=== PATIENT | female | born 1965 | race Caucasian/White ===

== ENCOUNTER 2020-02-06 14:10 | Emergency (ER) | payer OTHER, SELFPAY ==
[2020-02-06 14:11] VITALS: BP 134/86; PULSE 82; RESP 16; TEMP 36; O2SAT 97; BMI 29.2
--- NOTE | 2020-02-06 14:30 | CT_ITS ---
STUDY: CTA CHEST REASON FOR EXAM: Female, 54 years old. History of venous thrombi embolic disease RADIATION DOSAGE (If Supplied By Facility): CTDIvol = ( 12.13 ) mGy, DLP = ( 390.62 ) mGycm TECHNIQUE: The examination was performed with the intravenous administration of 100ML ISOVUE 370. Post-processing of the angiographic images was performed, with multiplanar reformation and 3D reconstruction. Individualized dose optimization techniques were used for this CT. COMPARISON: 01 March 2014, 20 August 2013 FINDINGS: The study is mildly/moderately degraded due to patient''s large body habitus. Subsegmental arteries are not evaluable. Some segmental branches are evaluable. Central proximal arteries are evaluable in diagnostic information is present. There is no acute or chronic pulmonary embolism. Aorta is of normal caliber. Lungs are clear. There is no pneumothorax, pulmonary edema or pleural effusions. Mediastinal contents are normal. Osseous structures are intact. There are multilevel degenerative disc and endplate changes with mild thecal sac stenosis in the mid and lower thoracic spine. Abdominal structures are unremarkable. CT/CTA Chest W/WO Contrast IMPRESSION: 1. No pulmonary embolism 2. No acute vascular thoracic pathology. 3. Thoracic spinal spondylosis. Electronically Signed: Jill Harris, at 16:20 EDT Tel , Service support ,
--- NOTE | 2020-02-06 14:31 | EKG12_ITS ---
Test Reason : Blood Pressure : / mmHG Vent. Rate : 080 BPM Atrial Rate : 080 BPM P-R Int : 182 ms QRS Dur : 090 ms QT Int : 376 ms P-R-T Axes : 060 001 046 degrees QTc Int : 433 ms Normal sinus rhythm Normal ECG Confirmed by ELIGIO HARPER MD ([id number]), acquisitions editor [place] ROYAL ([id number]) on 02/08/2020 1:21:27 PM Referred By: YASH Confirmed By:ELIGIO HARPER MD
[2020-02-06 14:32] VITALS: O2SAT 99
[2020-02-06] MEDS: Aspirin 81 MG TAB.CHEW 324 MG PO (14:39)
[2020-02-06] MEDS: 0.9% Normal Saline 1,000 ML 999 ML IV (14:39)
--- NOTE | 2020-02-06 14:44 | ED.VIS.CHEST ---
History of Present Illness <NickyherbLakishasukh - Last Filed: 02/06/20 15:05> Informant: Patient, Spouse/S.O. Onset: Today Activity at onset: Rest Timing: Continuous Quality: Dull Location: Substernal Current Severity: Mild Maximum Severity: Severe Worsened By: Nothing Relieved By: Nothing Associated Symptoms: Lightheadedness. Negative for: Nausea, Vomiting, Diaphoresis, Dyspnea, Cough, Fever, Acid Reflux, Palpitations Narrative: 54-year-old female presents to the emergency department with chest pain. It started at rest while she was sitting on her porch reading a book at 930 this morning. It is a dull pain substernal it is been constant. It does not radiate. Nothing makes it better or worse. She was somewhat lightheaded with the pain but has not had shortness of breath diaphoresis nausea or vomiting. She is not having back pain or neck pain. Denies history of similar symptoms. Denies any leg pain or swelling. Denies recent travel or surgery or use of oral control. She does have a history of a pulmonary embolism remotely and is on Plavix and aspirin only currently. Prior Similar Symptoms: Yes, With Prior PE Recent Illness/Hospitalization: No CVD Risk Factors: Negative for: Hypertension, Diabetes, Hypercholesterolemia, Family History 1' </=55, Smoking PE Risk Factors: Prior DVT or PE. Negative for: Recent Travel/Surgery, Recenet Immobilization, Cancer TAD Risk Factors: Negative for: Marfan's Syndrome, Hypertension, Family History <Humphrey Haskins - Last Filed: 02/06/20 16:50> Chief Complaint: Chest Pain Past Medical History <NickyherbLakishasukh - Last Filed: 02/06/20 15:05> Prior records reviewed: Yes Past Medical History: - Surgical History: - - stent to artery in left leg. surgery as a teenager to repair a laceration to the vulva. Recent uterine bx ( negative). History of dilation and curettage. Smoking Status: Former smoker <Humphrey Haskins - Last Filed: 02/06/20 16:50> - Allergies and Home Meds Allergies/Adverse Reactions: Allergies lansoprazole [From Prevacid] Allergy (Unknown, Verified 02/06/20 14:11) Unknown Penicillins Allergy (Unknown, Verified 02/06/20 14:11) Rash Primary Care Physician: Denny Woodard MD [Primary Care Provider] - Physical Exam Vital Signs/Narrative: Vital Signs Temp Pulse Resp BP Pulse Ox 02/06/20 14:32 99 02/06/20 14:11 96.8 F L 82 16 134/86 H 97 <Juan M Patterson - Last Filed: 02/06/20 15:05> Vital Signs/Narrative: Vital Signs Temp Pulse Resp BP Pulse Ox 02/06/20 14:32 99 02/06/20 14:11 96.8 F L 82 16 134/86 H 97 <Humphrey Haskins - Last Filed: 02/06/20 16:50> Diagnostic/Tx/Re-eval - Medical Decision Making Patient seen with Humphrey agree with history and physical as above, patient presents with chest pain she has a prior history for DVT and PE she is not been ill in any way no exposures to coronavirus no fever cough no hx TX CAD or risk factors for TX or CAD, she was on anticoagulation for some time now she is only on Plavix on exam she is resting company in the bed her vital signs are unremarkable head neck chest unremarkable lungs clear heart tones normal abdomen soft upper and lower extremities unremarkable she denies any leg pain or edema at this time given her history and all the above screening labs CTA see the chart for full details <Juan M Patterson - Last Filed: 02/06/20 15:05> CTA PE Study: No Evidence of PE, No Evidence of Dissection - Rhythm Strip Rhythm Strip: Sinus Rhythm Rate: 80 Ectopy: None - EKG Initial EKG Interpretation: Sinus Rhythm, No Acute Injury Pattern Prior: No Prior Treatment: Aspirin Repeat Eval: Pain Free - Medical Decision Making EKG showed sinus rhythm. No signs of ischemia. Patient treated with aspirin. CBC BMP troponin were obtained, all of these are unremarkable. With the patient's history of pulmonary embolism and chest pain we obtained a CTA of the chest. This was unremarkable. There is no pulmonary embolism. Repeat exam the patient is chest pain-free with stable vital signs. Heart score calculated at 1. She declines repeat troponin testing. We will discharge her home and advised her to follow-up with her primary care as an outpatient. She was advised to return for worsening symptoms which we went over. <Humphrey Haskins - Last Filed: 02/06/20 16:50> ED Disposition <Juan M Patterson - Last Filed: 02/06/20 15:05> <Humphrey Haskins - Last Filed: 02/06/20 16:50> - Plan for ED Patient: Disposition: Home or Assisted Living Diagnosis: Chest pain, History of DVT of lower extremity, History of pulmonary embolism Instructions: ED Chest Pain NonCardiac Referrals: Denny Woodard MD [Primary Care Provider] -
[2020-02-06 14:49] LABS: Absolute Lymphocyte Count 2.05 X10^3/uL (0.83-4.51); Absolute Neutrophil Count 3.1 X10^3/uL (2.0-7.7); Basophil# 0.06 X10^3/uL; Eosinophil# 0.42 X10^3/uL; Eosinophils% 6.7 % (0-5); Hematocrit 38.7 % (37-47); Hemoglobin 12.8 g/dL (12.0-15.0); Lymphocyte # 2.05 X10^3/ul (4.0); Lymphocyte % 32.6 % (19-41); Mean Corp Hgb Conc 33.1 g/dL (32-36); Mean Corpuscular Volume 87.8 fL (81-99); Mean Platelet Vol. 8.9 fl (6.2-12.0); Monocyte# 0.61 X10^3/uL; Monocyte% 9.7 % (0-10); NRBC Flagged by Analyzer 0 % (0-5); Neutrophil # 3.12 X10^3/uL (2.7-7.7); Neutrophil % 49.5 % (47-70); Platelet Count 328 K/mm3 (150-450); RBC Distribution Width SD 41.1 fl (35.1-43.9); Red Blood Count 4.41 M/mm3 (4.2-5.4); White Blood Count 6.3 K/mm3 (4.4-11.0)
[2020-02-06 15:03] LABS: Anion Gap 7 (5-15); BUN 9 mg/dL (7-18); Calcium,Total 8.7 mg/dL (8.5-10.1); Chloride 100 mmol/L (98-107); Creatinine, Serum 0.75 mg/dL (0.55-1.02); EST Glomerular Filtration Rate 85 mL/min (>60); Est Glom Filt Rate - Afr Amer 102 mL/min (>60); Estimated Creatinine Clearance 72.33 ml/min; Glucose 114 mg/dL (74-106); Potassium 3.4 mmol/L (3.5-5.1); Sodium Level 136 mmol/L (136-145)
[2020-02-06 15:26] VITALS: PULSE 77; RESP 18; O2SAT 98
[2020-02-06 16:21] VITALS: BP 140/75; PULSE 70; RESP 18; O2SAT 99
[2020-02-06 17:04] VITALS: BP 135/78; PULSE 72; RESP 18; O2SAT 99
== END 2020-02-06 17:05 | disposition home or self-care (01) ==
PROVIDERS: Emergency Provider Physician Assistant Medical; PCP Family Medicine
DX: R07.89 Other chest pain (principal); R42 Dizziness and giddiness; Z86.711 Personal history of pulmonary embolism; Z86.718 Personal history of other venous thrombosis and embolism; Z79.02 Long term (current) use of antithrombotics/antiplatelets; Z79.82 Long term (current) use of aspirin; Z79.899 Other long term (current) drug therapy; Z87.891 Personal history of nicotine dependence
CPT/HCPCS: 71275; 80048; 84484; 85025; 93005; 96360; 96361; 99285; J7030; Q9967; A4216

== ENCOUNTER 2020-08-29 02:47 | Emergency (ER) | payer OTHER, SELFPAY ==
[2020-08-29 02:47] VITALS: BP 132/71; PULSE 77; RESP 18; TEMP 36.4; O2SAT 96
--- NOTE | 2020-08-29 03:10 | ED.DCSUM_ITS ---
- ER Visit Summary Date of Service: 08/29/20 Chief Complaint: Hematuria History of Present Illness: The patient is a 55 F who presents with hematuria that began today. Patient also admits to some dysuria. Patient states she was having some nausea and vomiting yesterday. Patient also admits to some low back pain. Patient describes her pain as burning and pressure. Patient states the pain is over the suprapubic area. Patient states her pain is worse with urination. Patient admits to subjective fevers and chills. Patient also states she had a episode of chest pain yesterday. Patient denies any shortness of breath. Patient denies any cough. Physical Examination: Vital signs are stable. Patient is afebrile. Patient is in no acute distress. Oral mucosa is pink and moist. Neck is supple. Trachea is midline. There is no JVD noted. Heart was regular rate and rhythm. Lungs are clear and equal bilaterally. Abdomen is soft. Bowel sounds are normal. There is mild lower abdominal and left upper quadrant tenderness. There is no rebound or guarding noted. Skin is warm dry. Cranial nerves II through XII are intact. There are no focal motor or sensory deficits noted. Extremities are intact. There is no calf tenderness or edema. Test Results: CBC was normal. Comprehensive metabolic profile showed a mild hyponatremia of 128 and a mild hypokalemia of 2.9. Alk phos was slightly elevated at 164, ALT was slightly elevated at 179 and AST was slightly elevated at 229. Urinalysis showed leukocyte esterase of 500 and occult blood of 250. There were 50-100 white blood cells and greater than 100 red blood cells. Urine culture was ordered. Emergency Department Course and Treatment: Patient was given IV fluids and Zofran here. Patient was also given a dose of potassium and a dose of Bactrim. Patient was given a prescription for Bactrim. Patient was instructed to drink plenty of fluids. Patient was instructed to follow-up with her primary care physician in 3 to 5 days. Patient understood and was agreeable with the plan. All questions were answered. Disposition: Discharge home Impression: 1. Hemorrhagic cystitis This note was generated with [employer] software. It may contain incorrect words, spelling, and punctuation that were not noted in review of the chart prior to signing ED Disposition - Plan for ED Patient: Disposition: Home or Assisted Living Diagnosis: Hemorrhagic cystitis Instructions: ED Bladder Infection, Female (Adult) Prescriptions: Smz/Tmp Ds [Bactrim Ds] 1 tab PO BID #6 tab Prescription Printed Referrals: Denny Woodard MD [Primary Care Provider] - 3-5 Days
[2020-08-29] MEDS: Ondansetron 4 MG/2 ML Vial IV (03:14)
[2020-08-29 03:15] LABS: Absolute Lymphocyte Count 1.64 X10^3/uL (0.83-4.51); Absolute Neutrophil Count 5.9 X10^3/uL (2.0-7.7); Basophil# 0.06 X10^3/uL; Basophil% 0.7 % (0-1); Eosinophil# 0.39 X10^3/uL; Eosinophils% 4.4 % (0-5); Hematocrit 39.5 % (37-47); Hemoglobin 13.1 g/dL (12.0-15.0); Lymphocyte # 1.64 X10^3/ul (4.0); Lymphocyte % 18.6 % (19-41); Mean Corp Hgb Conc 33.2 g/dL (32-36); Mean Corpuscular Hgb 29.2 pg (27.0-32.0); Mean Corpuscular Volume 88.2 fL (81-99); Mean Platelet Vol. 8.4 fl (6.2-12.0); Monocyte# 0.83 X10^3/uL; Monocyte% 9.4 % (0-10); NRBC Flagged by Analyzer 0 % (0-5); Neutrophil # 5.88 X10^3/uL (2.7-7.7); Neutrophil % 66.4 % (47-70); Platelet Count 301 K/mm3 (150-450); RBC Distribution Width CV 12.9 % (11.6-14.6); RBC Distribution Width SD 41.3 fl (35.1-43.9); Red Blood Count 4.48 M/mm3 (4.2-5.4); White Blood Count 8.8 K/mm3 (4.4-11.0)
[2020-08-29 03:21] LABS: Bacteria 0 SEEN /hpf (None Seen); Mucous, Urine 0 SEEN /hpf (<or=2+); Squamous Epithelial Cells - UA 0 SEEN /hpf (5-10)
[2020-08-29 03:24] LABS: Color, Urine Red (Yellow)
[2020-08-29 03:25] LABS: Glucose, Dipstick Normal (Normal); Ketone-Dipstick 5 mg/dl (Negative); Leukocyte Esterase-Dipstick 500 /ul (Negative); Nitrite-Dipstick Negative (Negative); Occult Blood-Urine 250 /ul (Negative); Protein-Dipstick 100 mg/dl (Negative); Urine Bilirubin Dipstick Negative (Negative); Urine Clarity Cloudy (Clear); Urine Urobilinogen Normal (Normal)
[2020-08-29 03:27] LABS: ALB/GLOB Ratio 1.3 RATIO (0.9-2.4); AST(SGOT) 229 U/L (15-37); Alanine Aminotransfer ALT/SGPT 179 U/L (13-56); Albumin, Serum 3.9 g/dL (3.2-5.0); Alkaline Phosphatase 164 U/L (45-117); Anion Gap 10 (5-15); BUN 5 mg/dL (7-18); BUN/Creat Ratio 6.7 RATIO (10-20); Calcium,Total 7.9 mg/dL (8.5-10.1); Chloride 91 mmol/L (98-107); Creatinine, Serum 0.74 mg/dL (0.55-1.02); EST Glomerular Filtration Rate 86 mL/min (>60); Est Glom Filt Rate - Afr Amer 104 mL/min (>60); Estimated Creatinine Clearance 72.43 ml/min; Globulin 3.1 g/dL (2.2-4.2); Glucose 100 mg/dL (74-106); Potassium 2.9 mmol/L (3.5-5.1); Sodium Level 128 mmol/L (136-145)
[2020-08-29 03:29] LABS: Red Blood Cells-Urine > 100 SEEN /hpf (0-5); White Blood Cells 50-100 SEEN /hpf (0-5)
[2020-08-29] MEDS: Smz/Tmp Ds Tablet 1 TABLET PO (03:45)
[2020-08-29] MEDS: 0.9% Normal Saline 1,000 ML 1000 ML IV (03:50)
[2020-08-29 04:46] VITALS: BP 116/72; PULSE 72; RESP 15; O2SAT 98
[2020-08-29 04:47] VITALS: BP 116/72; PULSE 73; RESP 15; O2SAT 94
== END 2020-08-29 05:05 | disposition home or self-care (01) ==
PROVIDERS: Emergency Provider Emergency Medicine; PCP Family Medicine
DX: N30.91 Cystitis, unspecified with hematuria (principal); E87.1 Hypo-osmolality and hyponatremia; E87.6 Hypokalemia; Z86.718 Personal history of other venous thrombosis and embolism
CPT/HCPCS: 80053; 81001; 85025; 87086; 87088; 96361; 96374; 99283; J7030; A4216; J2405

== ENCOUNTER 2020-09-27 09:53 | Day surgery (SDC) | payer OTHER, SELFPAY ==
--- NOTE | 2020-09-24 11:12 | PCM.HP.BLA ---
History and Physical Date of Admission: 09/27/20 HISTORY AND PHYSICAL ? Mikal Collins 1965 ? ? REFERRING PHYSICIAN: Denny Woodard MD ? CHIEF COMPLAINT: Consult (Consult Jason) ? HPI: The patient is a 55 year old female presents with RUQ abdominal pain. She describes this a Throbbing pain that also radiates around to the back with occasional sharp pains. She also notes associated symptoms of nausea and occasional emesis. She also notes occasional loose stools. She has noted this since May, but at that time the attacks were less frequent/severe/prolonged. She now notes worsening symptoms of the above. She denies fevers. Her last attack was in August and she had to go to [facility] ED for treatment. She does note that her mother had gallbladder problems. ? US RUQ abdomen 09/08/20 IMPRESSION: Gallstones, including large stone of 2.4 cm. ?Gallbladder sludge. ? Dilated common duct. ?Cholecystitis is a diagnostic possibility. ?HIDA scan may be helpful for further evaluation, if clinically indicated. Otherwise normal right upper quadrant ultrasound. Suboptimal visualization of the pancreas and liver. ?If further evaluation is necessary, computed tomography may be helpful. The spleen appears normal. ? ? PAST MEDICAL HISTORY ? Abnormal EKG 07/24/2017 ? possible inferior NC age undetermined ? Compression of vein 12/17/2016 ? DVT (deep venous thrombosis) ([facility]) ? Dr. Howie osborn ? DVT (deep venous thrombosis) ([facility]) 09/02/2013 ? Dr. Howie osborn ? Left leg DVT ([facility]) ? 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 ? Personal history of DVT (deep vein thrombosis) 12/12/2017 ? Psoriatic arthritis ([facility]) ? ? [facility] ? Pulmonary embolism ([facility]) 08/2013 ? x 5 ? Uterine fibroid ? ? Venous aneurysm 09/02/2013 ? PAST SURGICAL HISTORY ? EGD W/O BRSH SPECIMEN W/BX ? ? ? EXTRACTION, ERUPTED TOOTH OR EXPOSED ROOT (ELEVATION AND/OR FORCEPS REMOVAL) ? ? wisdom teeth ? FILTER PLACEMENT ([facility]) ? 09-13- ? HYSTERECTOMY HX ? 09/2014 ? IVC FILTER PLACEMENT/REMOVAL ? - ? removal ? PAST SURGICAL HISTORY OF ? 1981 ? 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 PAST SURGICAL HISTORY OF ? 03/2009 ? esphageal dilatation--foreign body ? PAST SURGICAL HISTORY OF ? -2013 ? vena caval filter ? RTRVL INTRVAS VC FILTR W/WO ACS VSL SELXN RS&I ? 03-24-15 ? FILTER REMOVAL ? ? Current Outpatient Medications ? estradiol (ESTRACE) 0.01 % (0.1 mg/gram) vaginal cream Use 1 g vaginally once daily. ? sertraline (ZOLOFT) 50 mg tablet Take 1 tablet by mouth once daily. ? clopidogrel (PLAVIX) 75 mg tablet Take 1 tablet by mouth once daily. ? hydroxychloroquine (PLAQUENIL) 200 mg tablet Take by mouth once daily. ? gabapentin (NEURONTIN) 300 mg capsule Take 1 capsule by mouth three times daily. (Patient taking differently: Take 300 mg by mouth four times daily as needed.) ? Comp Stocking,Knee,Long,Medium misc 20-30 mmhg, Diagnosis venous inssuficiency ? omeprazole 20 mg capsule Take 1 capsule by mouth once daily. ? multivitamins(MULTIPLE VITAMINS TAB) Take one(1) tablet daily. ? ? ALLERGIES: Penicillins and Prevacid [Lansoprazole] ? PERSONAL HISTORY: Social History ?Tobacco Use ? Smoking status: Former Smoker ? ? Quit date: 08/06/2004 ? ? Years since quittin.1 ? Smokeless tobacco: Never Used Substance Use Topics ? Alcohol use: Yes ? ? Alcohol/week: 7.5 standard drinks ? ? Types: 3 Cans of Beer (12oz) per week ? Drug use: No ? FAMILY HISTORY ? Cancer Father ? ? tumor on kidney (unsure if malignant); of other causes ? Coronary Artery Disease Father ? ? mid-60's ? other (retinitis pigmatosis) Father ? ? (and uncle) blind ? DVT Mother ? ? has filter ? Osteoporosis Mother ? ? other (born blind) Mother ? ? Diabetes Other ? ? none ? Colon Cancer Other ? ? none ? ? REVIEW OF SYSTEMS: General - denies fevers, denies anorexia, denies weight loss Cardiovascular - denies chest pain, denies history of NC Pulmonary - denies shortness of breath, denies coughing up blood Gastrointestinal - see HPI, denies hematemesis, denies blood in stools Neurological - denies seizures, denies chronic numbness/weakness of extremities, denies chronic headaches Genitourinary - denies burning with urination, has had blood in urine treated for UTI - hemorrhagic cystitis - I have reviewed her [facility] ED note from 08/29/2020, has vulvar lichen sclerosis using hormonal cream Hematological - on plavix and aspirin due to May-Thurner syndrome - history of multiple DVT/PE, denies spontaneous/prolonged bleeding Skin - denies nonhealing skin wounds Musculoskeletal - has occasional back pain, notes bilateral feet pain Endocrine - denies diabetes, no thyroid problems Psychological ? denies hallucinations ? PHYSICAL EXAMINATION: General: The patient is 55 year old female, well nourished, well hydrated in no acute distress. The patient is oriented to time, place, and person. VITALS: Pulse 99, temperature 36.4 ?C (97.6 ?F), weight 78.3 kg (172 lb 9.6 oz), SpO2 98 %. Body mass index is 29.63 kg/m?. ? Head ? Normocephalic. EOM intact with sclera clear and no icterus noted. Mouth with mucus membranes moist. Neck - supple with no jugular venous distention noted. Trachea is midline. Lungs ? clear to auscultation. Normal breath sounds. No rales/rhonchi/wheezing noted. No labored breathing noted, such as retractions. No cough heard. Heart ? normal S1 and S2 auscultated. No rubs/clicks/murmurs noted. Regular rate. Abdomen ? soft and benign. Normal bowel sounds. No abdominal bruits noted. Extremities ? no calf tenderness noted. No pitting edema noted. Skin ? normal skin integrity. Neurological ? gait normal, no focal deficits noted. Psych ? calm and appropriate LABORATORY VALUES: As Noted RADIOLOGIC STUDIES: As Noted ? ? IMPRESSION: RUQ abdominal pain, cholelithiasis ? PLAN: I have discussed the above with the patient. I have offered laparoscopic cholecystectomy, possible cholangiograms I have explained the procedure to the patient. I have counseled the patient as to the risks of the procedure, including but not limited to: infection, bleeding, injury to any blood vessels/nerves, scar tissue, injury to any intrabdominal organs, injury to bowel/bladder, injury to the common bile duct/biliary tree, bile leakage, intraabdominal abscess/bleeding, hernias at incisional sites, wound infections, complications of anesthesia, etc. ? the patient understands. ? The patient was offered a surgery/procedure . The provider and patient have discussed in detail the risk of exposure to and/or potential harm posed by the COVID-19 virus with having a surgery/procedure at this time versus the risk of? delaying the surgery/procedure. It is not possible to know either the risk of delaying the surgery or procedure or chance of getting an infection with perfect accuracy, but a joint decision was made between the patient and the provider ?to proceed at this time with the scheduled surgery/procedure. ? The patient wishes to proceed. She wishes to have surgery at [facility]. ? I have answered all questions to the patient?s satisfaction and the patient has no further questions. ? Diagnoses: (R10.11) RUQ abdominal pain (primary encounter diagnosis) (K80.20) Calculus of gallbladder without cholecystitis without obstruction Return to Clinic: The patient is instructed to follow-up with me after the procedure as per needed. ? Thea Hernandez MD
[2020-09-27] VITALS (12 sets, daily range): BP systolic 103–131; BP diastolic 61–81; PULSE 72–96; RESP 16; TEMP 36.4–36.9; O2SAT 93–100; BMI 29.1
[2020-09-27] MEDS: Lactated Ringers 1,000 ML 75 ML IV ×2 (10:20→15:03)
--- NOTE | 2020-09-27 10:43 | EKG12_ITS ---
Test Reason : PRE-OP Blood Pressure : / mmHG Vent. Rate : 072 BPM Atrial Rate : 072 BPM P-R Int : 170 ms QRS Dur : 080 ms QT Int : 382 ms P-R-T Axes : 045 -01 035 degrees QTc Int : 418 ms Normal sinus rhythm Normal ECG Confirmed by WALKER NICHOLE, DOREEN ([id number]), film or videotape editor [place] ROYAL ([id number]) on 10/03/2020 1:00:10 PM Referred By: Thea Hernandez Confirmed By:SUZANNE CARDOSO MD
--- NOTE | 2020-09-27 11:26 | PCM.DC.GB ---
Discharge Diet: No Restrictions - avoid carbonated beverages for a couple of days as they may cause bloating and abdominal discomfort after this type of surgery, DO -drink plenty of fluids Discharge Activity: Return to Normal Activity, May not drive while taking narcotic pain medications. Lifting Restrictions: no lifting greater than 20 pounds for two weeks Call your doctor if your incision/area has: Continuous Slow Oozing, Foul Smelling Discharge Call your doctor if you observe: Fever of 101 or Higher Additional Instructions: Recommended pain control regimen - May take 600 mg ibuprofen (Motrin) and then in 3-4 hours, may take 650 mg acetaminophen (Tylenol), then in 3-4 hours may take 600 mg ibuprofen, then in 3-4 hours may take 650 mg acetaminophen and so on for 2-3 days May take narcotic pain medication for pain that is not controlled by above and at night for comfort through the night Leave dressings in place May get dressings wet in shower - do not scrub in the area and pat dry Do not soak - no tub baths/swimming If dressing appears to be soiled/open at one end/no longer sealed - may remove dressing but leave site uncovered (do not replace with any type of dressing) - leave steristrips in place - may get wet but do not scrub in the area and pat dry You may have bleeding at the dressing sites. If small amounts and not seeping through the dressing, do not worry - leave dressing in place. If starting to seep through the dressing, you may remove the dressing and take a clean wash clothe and apply direct pressure to the area for at least an hour and then apply a new clean bandaid at the site. If it still has not stopped bleeding, please call the office during the day or the [facility] ballast cleaning machine operator at after hours and ask for Dr. Hernandez Please call for a follow up appointment - - to be seen in 1-2 weeks at your time and convenience, thank you Allergies/Adverse Reactions: Allergies lansoprazole [From Prevacid] Allergy (Unknown, Verified 09/27/20 10:11) Unknown Penicillins Allergy (Unknown, Verified 09/27/20 10:11) Rash Medications to take at Discharge Multivitamins,Therapeutic [Multivitamin] 1 tablet PO DAILY 08/14/13 Omeprazole [Prilosec] 20 mg PO DAILY 08/14/13 Gabapentin [Neurontin] 300 mg PO TID 09/10/14 Aspirin [Aspirin, Baby] 81 mg PO DAILY 10/07/16 Clopidogrel Bisulfate [Plavix] 75 mg PO DAILY 10/07/16 Sertraline HCl [Zoloft] 50 mg PO DAILY 02/06/20 Hydroxychloroquine [Plaquenil] 300 mg PO DAILYCM 09/22/20 Hydrocodone Bitart/Apap 5-325 [[place] 5MG-325MG] 1 tablet PO Q8H PRN PRN 5 Days #15 tablet 09/27/20 The following prescriptions were given: Hydrocodone Bitart/Apap 5-325 [[place] 5MG-325MG] 1 tablet PO Q8H PRN PRN 5 Days #15 tablet PRN Reason: Pain Score 4-10 Transmission Status: Received by [facility]/pharmacy #[id number] Primary Care Physician: Denny Woodard MD [Primary Care Provider] - Test Results: Test results from this visit will be discussed in further detail at your follow-up appointment, if applicable. Please Follow Up With: Thea Hernandez MD - call When: to be seen in 1-2 weeks, please call for date and time, thank you
--- NOTE | 2020-09-27 11:29 | OP.PCM_ITS ---
Report of Operation Date of Procedure: 09/27/20 Pre-Operative Diagnosis: cholelithiasis Post-Operative Diagnosis: cholelithiasis, chronic cholecystitis Surgery/Procedure Performed:: laparoscopic cholecystectomy with cholangiograms Description of Surgical Findings:: chronic cholecystitis with omental adhesions to entire free surface of the gallbladder and in the area of the triangle of Calot, cholelithiasis account manager sales representative: Allyssa Bates Type of Anesthesia:: General Anesthesiologist: Ignacio Wade Specimen's removed: gallbladder and contents Estimated Blood Loss (mL): < 5 ml Fluids Replaced: 1200 ml RL Description of Procedure: After informed consent was given, the patient was brought to the Operating Room. Appropriate time out protocol was followed. The patient was placed in the supine position. The patient was then placed under general endotracheal anest hesia by the anesthesia provider. The abdomen was then prepped with a sterile surgical skin preparation and sterile surgical drapes were placed. The infraumbilical skin fold was grasped with penetrating clamps and the skin and subcutaneous tissues were infiltrated with 0.25% marcaine with epinephrine. A skin incision was then made with a 15 blade scalpel. The anterior abdominal wall was elevated and a Veress needle was carefully inserted into the intraabdominal cavity. It was checked to be in the proper position with a normal saline drop test. A CO2 pneumoperitoneum was then created. Once this was achieved, then the Veress needle was removed and an 11mm trocar was placed in its stead. A 10mm laparoscope was then inserted into the trocar and careful attention was directed to the intraabdominal contents. There was no evidence of injury to any intraabdominal organs from insertion of the Veress needle or the trocar. Under direct visualization, a 5mm subxiphoid trocar and two lateral 5mm right subcostal trocars were placed. The skin and subcutaneous tissues at these sites were infiltrated with 0.25% marcaine with epinephrine prior to placement of these trocars. Attention was then directed to the right upper quadrant of the abdomen. There were omental adhesions to the free surface of the gallbladder. These were taken down by blunt dissection, this took some time as there was more than average. Hemostasis was achieved by cautery. Once the entire free surface of the gallbladder was cleared, graspers were placed in the lateral trocars to grasp the distal aspect of the gallbladder and direct it cephalad and to grasp the gallbladder at Navarro?s pouch and direct it laterally. Dissection then began on the proximal gallbladder continuing down to the area of the triangle of Calot to bluntly dissect out the cystic duct. The neck of the gallbladder was identified and blunt dissection continued to dissect out a segment of the cystic duct. A clip was then placed on the neck of the gallbladder. A small ductotomy was then made. A Ranfac catheter was brought in through a separate skin incision and placed into the cystic duct. An intraoperative cholangiogram was performed under fluoroscopy. The xray revealed no lesions in the cystic duct and good flow into the duodenum. The Ranfac catheter was then removed and two clips were placed proximal to the ductotomy and the cystic duct was then transected. The cystic artery was visualized and bluntly isolated and then two clips were placed proximally and one clip distally and then it was transected between the proximal and distal clips. The gallbladder was then from the liver bed using electrocautery. Once from the liver bed, it was placed in an Endobag. It was then brought out via the umbilical port. It was then forwarded to pathology for analysis. The liver bed was carefully examined. There was no evidence of bile leakage or bleeding. The cystic duct stump and cystic artery stump had their clips intact and there was no evidence of bile leakage or bleeding. Surgicel was applied to some of the fatty tissues around the cystic artery. The remainder of the abdomen was grossly normal. The CO2 was released and all trocars removed intact. The periumbilical fascia was approximated with a [id number] 0 vicryl suture. All skin incision were closed with 4-0 monocryl in a subdermal fashion. Cavilol and Steristrips were used to reinforce the skin closure. Sterile dressings were applied to all wounds. Sponge, needle and instrument count was verified and correct at time of skin closure. The patient was extubated and brought to the Recovery Room in stable condition. - Complications none noted - Admit VTE Documentation VTE Present on Admission: Yes VTE Mechan Device Prophylaxis: SCD's
--- NOTE | 2020-09-27 11:30 | RAD_ITS ---
STUDY: INTRAOPERATIVE CHOLANGIOGRAM. REASON FOR EXAM: Female, 55 years old. PAIN. IOC. 1 IMAGE FLUOROSCOPY TIME (if supplied): ( 2.5 seconds ) minutes/seconds TECHNIQUE: An intraoperative cholangiogram was performed by the surgeon. Single image was submitted. COMPARISON: None. FINDINGS: The common bile duct is not dilated. No intraluminal filling defect is seen. There is free flow of contrast into the duodenum. RAD/Cholangiogram/ O R,Initial IMPRESSION: Unremarkable intraoperative cholangiogram. Electronically Signed: Javad Hurt MD at 12:56 EST , Service support ,
--- NOTE | 2020-09-27 11:30 | GALL_PTH ---
PATIENT: BHUPENDRA SILVERIO [place] [facility] [place][id number] AGE/SX: 55/F ROOM: RE09/27/[address]: Dr. Thea Hernandez MD : [id number] BED: DIS: 09/27/2020 SPEC #: [id number] RECD: 09/27/20 13:13 STATUS: JESSIKA RE #: [id number] ARIA: 09/27/20 11:[address]: Thea Hernandez DEPT: SURGICAL PATHOLOGY RECD BY: Agustina Otero ENTERED: 09/28/20 07:13 SP TYPE: MARTHA PABON DR: Dr. Denny Woodard MD Tissues: Gallbladder, NOS Procedures: Surgery Specimen Level III HEADER OPERATION: Laparoscopic cholecystectomy with IOC PRE-OP DIAGNOSIS: Cholelithiasis TISSUE SUBMITTED: Gallbladder MICROSCOPIC DIAGNOSIS Gallbladder, cholecystectomy: Cholesterolosis, cholecystitis and cholelithiasis. AM:ludwig 09/29/2020 MICROSCOPIC DESCRIPTION Slides are reviewed. GROSS DESCRIPTION Received is one container labeled with the patient's name and designated gallbladder. The specimen consists of a gallbladder measuring 7.5 x 3 x 3 cm. The external surface is smooth and glistening. Focally, it is granular, hemorrhagic and contains cautery artifact. The lumen of the gallbladder contains yellow-green mucoid bile and multiple chalky, yellow calculi ranging in size from <0.1 to 2.8 cm in greatest dimension. The mucosa is bile-stained and without any mass lesions. The gallbladder wall averages 0.2 cm in thickness and is free of mass lesions. Able Seaman sections of the gallbladder and the cystic duct at margin of resection are submitted in one cassette. / AM:ludwig 09/28/20 TC:3 CPT: 22449
[2020-09-27] MEDS: Bupiv/Epi 0.25% 30 ML Vial (12:46)
[2020-09-27] MEDS: HYDROcodone Bitartrate/Apap 5/325 Tablet PO (15:27)
== END 2020-09-27 16:26 | disposition home or self-care (01) ==
LOC: SDC 09:54 → AC 09:54
PROVIDERS: PCP Family Medicine; Referring Provider Surgery; Visit Provider Surgery
PROC: (CPT 47610; principal; 2020-09-27 11:10)
DX: K80.10 Calculus of gallbladder with chronic cholecystitis without obstruction (principal); Z20.828 Contact with and (suspected) exposure to other viral communicable diseases; L40.50 Arthropathic psoriasis, unspecified; Z86.711 Personal history of pulmonary embolism; K21.9 Gastro-esophageal reflux disease without esophagitis; Z79.899 Other long term (current) drug therapy; Z86.718 Personal history of other venous thrombosis and embolism; Z79.82 Long term (current) use of aspirin; Z79.02 Long term (current) use of antithrombotics/antiplatelets; Z87.891 Personal history of nicotine dependence
CPT/HCPCS: 47563; 74300; 76000; 87426; 88304; 93005; C9803; J7050; J7120; J2405

== ENCOUNTER 2020-11-15 15:13 | Outpatient (RCR) | payer OTHER, SELFPAY ==
[2020-09-27 10:12] VITALS: BMI 29.1
[2020-11-15] MEDS: COVID-19 VACC, MRNA(PFIZER)/PF 30 MCG/0.3 ML SYRINGE IM (16:36)
[2020-12-06] MEDS: COVID-19 VACC, MRNA(PFIZER)/PF 30 MCG/0.3 ML SYRINGE IM (16:34)
== END 2020-11-15 23:59 ==
LOC: IMMUN 15:13
PROVIDERS: PCP Family Medicine; Referring Provider Family Medicine; Visit Provider Family Medicine
DX: Z23 Encounter for immunization (principal)
CPT/HCPCS: 0001A; 0002A; 91300

== ENCOUNTER 2022-02-15 16:26 | Emergency (ER) | payer OTHER, SELFPAY ==
[2022-02-15 16:27] VITALS: BP 162/95; PULSE 82; RESP 22; TEMP 36.6; O2SAT 98; BMI 30.1
--- NOTE | 2022-02-15 16:47 | EKG12_ITS ---
Test Reason : CP Blood Pressure : / mmHG Vent. Rate : 075 BPM Atrial Rate : 075 BPM P-R Int : 184 ms QRS Dur : 072 ms QT Int : 378 ms P-R-T Axes : 053 -14 028 degrees QTc Int : 422 ms Normal sinus rhythm Low voltage QRS Inferior infarct , age undetermined , cannot be excluded Abnormal ECG Confirmed by ARLYN NICHOLE, PARK ([id number]), medical transcription editor [place] ROYAL ([id number]) on 02/16/2022 9:03:14 AM Referred By: YOSELYN Confirmed By:PARK STODDARD MD
--- NOTE | 2022-02-15 16:48 | ED.VIS.CHEST ---
HPI History of Present Illness Chief Complaint: Chest Pain Informant: patient Narrative Narrative: 56-year-old female presenting to the emergency department with chest pain and left arm heaviness. She states that yesterday she experienced about 10 to 15 minutes of a sharp left of sternum chest pain. Today while driving home she noted that the left arm felt heavy. She states that it continues to feel heavy. It is not painful but it does not feel like the right arm. She states that while sitting in the bed here in the emergency department she had a brief episode of sharp left-sided chest pain just inferior to the breast. No nausea or shortness of breath. No vomiting. She takes Plavix due to a stent in the left leg. [facility] Medical History (Updated 02/15/22 @ 16:[address] Dean Patel DO) Fibroids GERD (gastroesophageal reflux disease) History of DVT of lower extremity Psoriatic arthritis Home Medications multivitamin with folic acid 400 mcg tablet (Thera) 1 tab PO DAILY 08/14/13 [History Last Taken 03/23/14 500 mg] omeprazole 20 mg capsule,delayed release 20 mg PO DAILY 08/14/13 [History Last Taken 09/27/20] gabapentin 300 mg capsule 300 mg PO TID 09/10/14 [History Last Taken 09/27/20] aspirin 81 mg chewable tablet 81 mg PO DAILY 10/07/16 [History Last Taken Unknown] clopidogrel 75 mg tablet 75 mg PO DAILY 10/07/16 [History Last Taken Unknown] sertraline 50 mg tablet 50 mg PO DAILY 02/06/20 [History Last Taken Unknown] hydroxychloroquine 200 mg tablet 300 mg PO DAILYCM RA 09/22/20 [History Last Taken Unknown] Allergy/AdvReac Type Severity Reaction Status Date / Time lansoprazole [From Prevacid] Allergy Unknown Unknown Verified 09/27/20 10:11 Penicillins Allergy Unknown Rash Verified 09/27/20 10:11 Surgical History Hx laparoscopic cholecystectomy Social History (Updated 02/15/22 @ 16:[address] Dean Patel DO) current gender identity: female Smoking Status: Never smoker substance use type: does not use ROS ROS ED Constitutional Constitutional ED: Denies chills or weight loss Eyes Eyes: Denies change in vision or diplopia ENT ENT ED: Denies ear pain, rhinorrhea or sore throat Cardiovascular Cardiovascular: Reports chest pain; Denies orthopnea, palpitations or racing heartbeat Respiratory/Chest Respiratory/Chest: Denies cough, dyspnea or orthopnea Gastrointestinal Gastrointestinal: Denies abdominal pain, diarrhea, nausea or vomiting Genitourinary Genitourinary ED: Denies dysuria, hematuria or urinary frequency Musculoskeletal Musculoskeletal: Reports other Details: Left arm heaviness ; Denies arthralgias or myalgias Integumentary Denies abscess or rash Neurologic Neurologic: Denies headache(s) or weakness Psychiatric Psychiatric: Denies anxiety, depression, suicidal ideation or suicidal thoughts Endocrine Endocrinology: Denies polydipsia, polyphagia or polyuria Allergic/Immunologic Allergic/Immunologic ED: Denies mouth swelling, tongue swelling or urticaria EXAM Physical Exam Const Vital Signs: 02/15/22 16:27 02/15/22 16:33 02/15/22 16:36 Temperature 97.9 F Temperature Source Oral Pulse Rate 82 Respiratory Rate 22 H Respiratory Effort Normal Non-Labored Blood Pressure 162/95 H Blood Pressure Mean 117 Pulse Ox 98 Oxygen Delivery Method Room Air Room Air Positive well nourished and well developed General Appearance ED: well developed HEENT Reports normocephalic, head/scalp atraumatic and moist mucous membranes Eyes PERRL and EOMs intact bilaterally Neck no lymphadenopathy, supple and no JVD Resp normal respiratory effort and clear to auscultation bilaterally Cardio regular rate, regular rhythm and no murmurs GI normal to inspection, nondistended, normoactive bowel sounds and non-tender Palpation: soft Back/Spine no CVA tenderness and normal ROM Extremity normal to inspection General Extremety ED: Negative for edema General Extremity: Negative for edema Neuro oriented x3 and CN's II-XII intact bilaterally Sensorium / Orientation: alert Motor Exam: strength 5/5 throughout Psych mental status grossly normal Mood & Affect: Negative for depressed or tearful Skin no rashes or lesions noted and no wounds Heart Score History: Slightly/Non-Suspicious ECG: Normal Age: >45 - <65 years Risk Factors: 1 or 2 Risk Factors Troponin: </= Normal Limit Score: 2 MDM MDM MDM Narrative Medical decision making narrative: Troponin is negative D-dimer is negative. CBC and BMP are normal. Monitor duration of the chest x-ray is no acute process normal mediastinum. The patient has remained in a normal rhythm on the monitor. I think she can be discharged home at this point. Return if worsening or concerns Lab Data Attestation: I reviewed the patient's lab results. Labs: Laboratory Results - last 24 hr 02/15/22 02/15/22 02/15/22 16:30 16:30 16:30 WBC 6.7 RBC 4.63 Hgb 13.7 Hct 40.3 MCV 87.0 MCH 29.6 MCHC 34.0 RDW Std Deviation 41.8 RDW Coeff of Roberta 13.2 Plt Count 367 MPV 8.5 Immature Gran % (Auto) 0.500 Neut % (Auto) 50.8 Lymph % (Auto) 34.7 Candler % (Auto) 9.0 Eos % (Auto) 4.1 Baso % (Auto) 0.9 Absolute Neuts (auto) 3.4 Absolute Lymphs (auto) 2.31 Nucleated RBC % 0 D-Dimer Quant (PE/DVT) < 0.27 L Sodium 133 L Potassium 3.4 L Chloride 98 Carbon Dioxide 30.0 Anion Gap 5 BUN 8 Creatinine 0.71 Estim Creat Clear Calc 74.58 Est GFR (MDRD) Af Amer 108 Est GFR (MDRD) Non-Af 90 BUN/Creatinine Ratio 11.3 Glucose 103 Calcium 8.6 Troponin I High Sens < 3 L EKG Initial EKG: Attestation: I personally reviewed and interpreted this EKG as follows: Comments: Normal sinus rhythm with a ventricular rate of 75 bpm. No concerning features of ACS Discharge Plan Triage Chief Complaint: Chest Pain ED Provider: Dean Patel Dx/Rx/DC Orders Clinical Impression: Chest pain Instructions: ED Chest Pain, Uncertain Cause Prescriptions: No Action omeprazole 20 MG capsule 20 mg PO DAILY Label Comments: GERD multivitamin with folic acid [Thera] 1 TABLET tablet 1 tab PO DAILY Label Comments: SUPPLEMENT gabapentin 300 MG capsule 300 mg PO TID Label Comments: PAIN, NEUROPATHY clopidogrel 75 MG tablet 75 mg PO DAILY aspirin 81 MG tablet,chewable 81 mg PO DAILY sertraline 50 MG tablet 50 mg PO DAILY hydroxychloroquine 200 MG tablet 300 mg PO DAILYCM Primary Care Provider: Denny Woodard Referrals: Denny Woodard MD [Primary Care Provider] - 3-5 Days Disposition Disposition: Home, Self Care
--- NOTE | 2022-02-15 16:50 | RAD_ITS ---
INDICATION: chest pain EXAMINATION/TECHNIQUE: X-RAY - XR Chest 1 View COMPARISON: None. FINDINGS: The lungs are clear. The cardiomediastinal silhouette is unremarkable. No pleural effusion or pneumothorax. Degenerative changes of the thoracic spine. RAD/Chest 1 View (Portable) IMPRESSION: No acute radiographic abnormalities. Electronically Signed: Maximus Bradford MD at 17:40 EDT ,
[2022-02-15 17:06] LABS: Absolute Lymphocyte Count 2.31 X10^3/uL (0.83-4.51); Absolute Neutrophil Count 3.4 X10^3/uL (2.0-7.7); Basophil# 0.06 X10^3/uL; Basophil% 0.9 % (0-1); Eosinophil# 0.27 X10^3/uL; Eosinophils% 4.1 % (0-5); Hematocrit 40.3 % (37-47); Hemoglobin 13.7 g/dL (12.0-15.0); Lymphocyte # 2.31 X10^3/ul (0.83-4.51); Lymphocyte % 34.7 % (19-41); Mean Corpuscular Hgb 29.6 pg (27.0-32.0); Mean Platelet Vol. 8.5 fl (6.2-12.0); NRBC Flagged by Analyzer 0 % (0-5); Neutrophil # 3.39 X10^3/uL (2.7-7.7); Neutrophil % 50.8 % (47-70); Platelet Count 367 K/mm3 (150-450); RBC Distribution Width CV 13.2 % (11.6-14.6); RBC Distribution Width SD 41.8 fl (35.1-43.9); Red Blood Count 4.63 M/mm3 (4.2-5.4); White Blood Count 6.7 K/mm3 (4.4-11.0)
[2022-02-15 17:25] LABS: Anion Gap 5 (5-15); BUN 8 mg/dL (7-18); BUN/Creat Ratio 11.3 RATIO (10-20); Calcium,Total 8.6 mg/dL (8.5-10.1); Chloride 98 mmol/L (98-107); Creatinine, Serum 0.71 mg/dL (0.55-1.02); EST Glomerular Filtration Rate 90 mL/min (>60); Est Glom Filt Rate - Afr Amer 108 mL/min (>60); Estimated Creatinine Clearance 74.58 ml/min; Glucose 103 mg/dL (74-106); Potassium 3.4 mmol/L (3.5-5.1); Sodium Level 133 mmol/L (136-145); Troponin-I HS < 3 pg/mL (3.0-54.0)
[2022-02-15 17:27] LABS: D-Dimer Quantitative (DVT/PE) < 0.27 FEU/ug/m (0.27-0.49)
[2022-02-15 17:49] VITALS: BP 135/72; PULSE 72; RESP 12; O2SAT 98
== END 2022-02-15 17:49 | disposition home or self-care (01) ==
PROVIDERS: Emergency Provider Emergency Medicine; PCP Family Medicine; Visit Provider Emergency Medicine
DX: R07.9 Chest pain, unspecified (principal); K21.9 Gastro-esophageal reflux disease without esophagitis; Z79.82 Long term (current) use of aspirin; Z79.899 Other long term (current) drug therapy; Z86.718 Personal history of other venous thrombosis and embolism
CPT/HCPCS: 71045; 80048; 84484; 85025; 85379; 93005; 99284

== ENCOUNTER 2022-08-08 13:38 | Emergency (ER) | payer OTHER, SELFPAY ==
[2022-08-08 13:38] VITALS: BP 143/84; PULSE 71; RESP 18; TEMP 35.6; O2SAT 98; BMI 28.3
--- NOTE | 2022-08-08 14:07 | VDLE_ITS ---
Reason For Study: LEG PAIN RIGHT LEFT GSV is normal. CFV is compressible, spontaneous, phasic, CFV is compressible, spontaneous, phasic, competent, and demonstrates normal competent and demonstrates normal augmentation. augmentation. FV is compressible, spontaneous, phasic, competent and demonstrates normal augmentation. POP V is compressible, spontaneous, phasic, competent and demonstrates normal augmentation. T/P Trunk is compressible. PTV is compressible. RT PerV is compressible. Procedure This is a venous duplex using B-mode, color flow and spectral Doppler. Exam performed portable in ED. The exam was diagnostic. A preliminary report was called and/or faxed to ED Nurse. VL/Venous Duplex US, Unilateral Interpretation Summary There is no evidence of right lower extremity deep vein thrombosis. Right great saphenous vein appears patent and compressible segmentally. Normal flow patterns left common f emoral vein Ordering Physician: Provider, Ed Physician Performed By: Ignacio Rose RVT
--- NOTE | 2022-08-08 16:08 | ED.VIS.LOWEX ---
HPI History of Present Illness Chief Complaint: Lower Extremity Injury Informant: patient Narrative Narrative: 1 week history of discomfort in the back of her right knee. No traumas. No recent travel. Concerns due to history of left DVT in 2012 finished anticoagulation treatment. No chest pains or shortness of breath. Called her PCP who sent to the ED for ultrasound studies. Reports had a stent placed in her left femoral vein due to compression from her femoral artery. She is on Plavix. [facility] Medical History Fibroids GERD (gastroesophageal reflux disease) History of DVT of lower extremity Psoriatic arthritis Home Medications multivitamin with folic acid 400 mcg tablet (Thera) 1 tab PO DAILY 08/14/13 [History Last Taken 03/23/14 500 mg] omeprazole 20 mg capsule,delayed release 20 mg PO DAILY 08/14/13 [History Last Taken 09/27/20] gabapentin 300 mg capsule 300 mg PO TID 09/10/14 [History Last Taken 09/27/20] aspirin 81 mg chewable tablet 81 mg PO DAILY 10/07/16 [History Last Taken Unknown] clopidogrel 75 mg tablet 75 mg PO DAILY 10/07/16 [History Last Taken Unknown] sertraline 50 mg tablet 50 mg PO DAILY 02/06/20 [History Last Taken Unknown] hydroxychloroquine 200 mg tablet 300 mg PO DAILYCM RA 09/22/20 [History Last Taken Unknown] Allergy/AdvReac Type Severity Reaction Status Date / Time lansoprazole [From Prevacid] Allergy Unknown Unknown Verified 08/08/22 13:40 Penicillins Allergy Unknown Rash Verified 08/08/22 13:40 Surgical History Hx laparoscopic cholecystectomy Social History Smoking Status: Never smoker substance use type: does not use ROS ROS ED Constitutional Constitutional ED: Denies chills, fever(s) or sweats Eyes Eyes: Denies change in vision ENT ENT ED: Denies dysphagia or sore throat Cardiovascular Cardiovascular: Denies chest pain, leg edema, palpitations or racing heartbeat Respiratory/Chest Respiratory/Chest: Denies cough, dyspnea or dyspnea on exertion Gastrointestinal Gastrointestinal: Denies abdominal pain, diarrhea, nausea or vomiting Genitourinary Genitourinary ED: Denies dysuria, hematuria or urinary frequency Musculoskeletal Musculoskeletal: Reports extremity pain; Denies back pain or neck pain Integumentary Denies rash or wounds Neurologic Neurologic: Denies headache(s), paresthesias or weakness EXAM Physical Exam Const Vital Signs: 08/08/22 13:38 08/08/22 16:12 Temperature 96.1 F L Temperature Source Temporal Pulse Rate 71 Respiratory Rate 18 Blood Pressure 143/84 H Blood Pressure Mean 103 Pulse Ox 98 99 Oxygen Delivery Method Room Air Positive well nourished and well developed General Appearance ED: well developed and NAD HEENT Reports moist mucous membranes normocephalic and atraumatic Eyes PERRL, EOMs intact bilaterally and conjunctivae normal General Eye ED: Yes normal appearance of both eyes Neck no lymphadenopathy and supple General: Negative for tenderness Chest Wall Chest: Negative for tenderness Resp normal respiratory effort and normal air movement Effort and Inspection: symmetric chest movement; Negative for respiratory distress Cardio regular rate, regular rhythm and no murmurs Peripheral Pulses: pulses 2+ throughout GI normal to inspection, nondistended, normoactive bowel sounds and non-tender Palpation: Negative for guarding or rebound tenderness present Back/Spine no CVA tenderness and no thoracic nor lumbar tenderness Extremity Extremity Narrative: Right lower extremity: No medial thigh pain. There is discomfort in the popliteal fossa with some mild fullness noted. No calf tenderness. Neuro vas intact distally. General Extremety ED: Negative for edema or tenderness General Extremity: Negative for edema Neuro oriented x3 and no sensory deficits noted Sensorium / Orientation: awake and alert Skin no rashes or lesions noted and no wounds MDM MDM MDM Narrative Medical decision making narrative: Ultrasound right lower extremity obtain, wet report negative for DVT. Discussed possibility of a popliteal cyst however not reported at this time. She is able to ambulate. Discussed if symptoms persist after a week for reimaging through her PCP. All questions were answered. Radiography Diagnostic Testing: Clinical Impression(s) from Imaging Studies Venous Doppler Study 08/08/22 14:07 Interpretation Summary There is no evidence of right lower extremity deep vein thrombosis. Right great saphenous vein appears patent and compressible segmentally. Normal flow patterns left common femoral vein Ordering Physician: Provider, Ed Physician Performed By: Ignacio Rose RVT Discharge Plan Triage Chief Complaint: Lower Extremity Injury ED Provider: Peter Shukla Dx/Rx/DC Orders Clinical Impression: Pain of right lower leg, History of deep vein thrombosis Instructions: Understanding Veins Prescriptions: No Action omeprazole 20 MG capsule 20 mg PO DAILY Label Comments: GERD multivitamin with folic acid [Thera] 1 TABLET tablet 1 tab PO DAILY Label Comments: SUPPLEMENT gabapentin 300 MG capsule 300 mg PO TID Label Comments: PAIN, NEUROPATHY clopidogrel 75 MG tablet 75 mg PO DAILY aspirin 81 MG tablet,chewable 81 mg PO DAILY sertraline 50 MG tablet 50 mg PO DAILY hydroxychloroquine 200 MG tablet 300 mg PO DAILYCM Primary Care Provider: Denny Woodard Referrals: Denny Woodard MD [Primary Care Provider] - 1 Week if not improving Activity Restrictions/Additional Instructions: Right leg negative for DVT. Monitor symptoms. Symptoms persist follow-up with your doctor for reimaging studies in 1 week. Disposition Disposition: Home, Self Care Discharge Date/Time: 08/08/22 16:13
[2022-08-08 16:12] VITALS: O2SAT 99
== END 2022-08-08 16:13 | disposition home or self-care (01) ==
PROVIDERS: Emergency Provider Emergency Medicine; PCP Family Medicine; Visit Provider Emergency Medicine
DX: M79.661 Pain in right lower leg (principal); Z86.718 Personal history of other venous thrombosis and embolism
CPT/HCPCS: 93971; 99282

== ENCOUNTER 2023-03-19 13:38 | Emergency (ER) | payer OTHER, SELFPAY ==
[2023-03-19 13:39] VITALS: BP 160/98; PULSE 81; RESP 14; TEMP 36.2; O2SAT 98; BMI 29.5
[2023-03-19 13:47] VITALS: BP 144/72; PULSE 81; RESP 18; O2SAT 98
--- NOTE | 2023-03-19 14:32 | EX.ED.DYSGE1 ---
HPI History of Present Illness Chief Complaint: Chest Pain Informant: patient Narrative Narrative: Patient presents not feeling well. She states about 830 this morning she started with symptoms. She states she had diarrhea several times but that has gotten better. It was watery and then got a little bit more solid. She has had a bit of a headache. She states she aches all over her body like she was in a fight. She is aching everywhere. She has had some mild nausea but no vomiting. She felt feverish. She would feel hot and cold and then get chilled and goosebumps. Mixed in with this she has had some discomfort in the chest but is hard to separate this from the chest aching she has everywhere. She also had some palpitations. She was thinking of checking a COVID at home but did not. She does not have any known exposures to other people who are ill. 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 She has had that stented. She was told she does not need to be on blood thinners but she has stayed on Plavix to be safe. She also has arthritis and takes gabapentin and hydroxychloroquine. She takes Zoloft. She takes omeprazole and she takes a multivitamin. None of these are new or different. She has never been a smoker. She is being evaluated for possible high blood pressure but has never been diagnosed. Her high readings go up to about 154. No cholesterol or known heart disease. [facility] Medical History Fibroids GERD (gastroesophageal reflux disease) History of DVT of lower extremity Psoriatic arthritis Home Medications multivitamin with folic acid 400 mcg tablet (Thera) 1 tab PO DAILY 08/14/13 [History Last Taken 03/23/14 500 mg] omeprazole 20 mg capsule,delayed release 20 mg PO DAILY 08/14/13 [History Last Taken 09/27/20] gabapentin 300 mg capsule 300 mg PO TID 09/10/14 [History Last Taken 09/27/20] aspirin 81 mg chewable tablet 81 mg PO DAILY 10/07/16 [History Last Taken Unknown] clopidogrel 75 mg tablet 75 mg PO DAILY 10/07/16 [History Last Taken Unknown] sertraline 50 mg tablet 50 mg PO DAILY 02/06/20 [History Last Taken Unknown] hydroxychloroquine 200 mg tablet 300 mg PO DAILYCM RA 09/22/20 [History Last Taken Unknown] Allergy/AdvReac Type Severity Reaction Status Date / Time lansoprazole [From Prevacid] Allergy Unknown Unknown Verified 08/08/22 13:40 Penicillins Allergy Unknown Rash Verified 08/08/22 13:40 Surgical History Hx laparoscopic cholecystectomy Social History Smoking Status: Never smoker substance use type: does not use ROS ROS ED ROS Narrative A complete review of systems was performed and is negative except as documented in the history of present illness. Some specific details below. Constitutional: She has had some subjective fever and chills today. EYE: No discharge, visual complaints, or pain. ENT: No difficulty swallowing. No swelling. No pain. No reflux symptoms. CV: See history of present illness. Respiratory: Has not been coughing or short of breath. GI: No abdominal pain. But she has had some nausea without vomiting and several episodes of diarrhea which are new today. No blood in stool. : No frequency dysuria or hematuria. Musculoskeletal: No recent trauma. But she does have diffuse myalgias. Skin: No rash. When she has had a fever she felt like she has gotten sweaty or cold. But this does not correlate with any change in pains. Neuro: No weakness or numbness. Endocrine: No polyuria or polydipsia. EXAM Physical Exam Narrative Exam Narrative: CONSTITUTIONAL: Patient is nontoxic in appearance. The patient looks comfortable. Work of breathing looks normal. HEENT: No notable trauma. Mucous membranes are still moist. EYES: No conjunctival injection. No proptosis. No pallor. NECK:No JVD. No stridor. CARDIOVASCULAR: Regular rate. Regular rhythm. No notable murmur. No JVD. Not tachycardic. On the monitor, she has a normal sinus rhythm with a rate of about 80. I do not see any ectopy. RESPIRATORY: No respiratory distress. Breathing is unlabored. No wheezes. No rhonchi. No rales. No pain with a deep breath. No chest wall tenderness. GASTROINTESTINAL: Not distended. Bowel sounds are normal. No tenderness. No guarding. No rebound. No palpable mass. No bruit is heard. GENITOURINARY: No tenderness over the bladder. No CVA tenderness. MUSCULOSKELETAL: Atraumatic. No peripheral edema. No cord. No tenderness along the deep venous system. No asymmetry. No distended veins. She wears compression hose all the time but there is no notable asymmetry. Even measuring around the calf I am not getting any difference. NEUROLOGICAL: Patient is alert and appropriate. No focal deficit noted. SKIN: No noted rashes. No diaphoresis. PSYCHIATRIC: Patient is calm. Mood is appropriate. Const Vital Signs: 03/19/23 13:39 03/19/23 13:47 03/19/23 14:36 Temperature 97.1 F L Temperature Source Temporal Pulse Rate 81 81 Respiratory Rate 14 18 Blood Pressure 160/98 H 144/72 H Blood Pressure Mean 118 96 Pulse Ox 98 98 98 Oxygen Delivery Method Room Air Room Air Room Air MDM MDM MDM Narrative Medical decision making narrative: Patient CBC is overall normal. Minimal percentage increase in neutrophils. Electrolytes show some mildly low potassium. I talk with the patient about giving her potassium but she would prefer to just eat some bananas which I think is a reasonable option since she is not having symptoms of this and she is no longer having the diarrhea. Her troponin is 4. And that is after over 6 hours of symptoms. My independent interpretation of her single view chest x-ray shows no acute process and that is similar to final reading. Patient also agrees that she likely has a viral syndrome. She was just worried with some of the palpitations. She was also worried that in among her areas of pain she also had some soreness in the chest. But she is not tachycardic tachypneic or hypoxic. No pleuritic pain. No swollen legs. I do not think we need to do D-dimer studies for PE. That does not explain her diffuse symptomatology. Lab Data Attestation: I reviewed the patient's lab results. Labs: Laboratory Results - last 24 hr 03/19/23 13:55 WBC 8.4 RBC 4.52 Hgb 13.0 Hct 39.5 MCV 87.4 MCH 28.8 MCHC 32.9 RDW Std Deviation 42.5 RDW Coeff of Roberta 13.2 Plt Count 341 MPV 8.7 Immature Gran % (Auto) 0.700 Neut % (Auto) 73.2 H Lymph % (Auto) 14.8 L [place] % (Auto) 9.4 Eos % (Auto) 1.4 Baso % (Auto) 0.5 Absolute Neuts (auto) 6.2 Absolute Lymphs (auto) 1.25 Nucleated RBC % 0 Sodium 134 L Potassium 3.1 L Chloride 98 Carbon Dioxide 28.0 Anion Gap 8 BUN 7 Creatinine 0.69 Estim Creat Clear Calc 75.81 Est GFR (MDRD) Af Amer 112 Est GFR (MDRD) Non-Af 92 BUN/Creatinine Ratio 10.1 Glucose 129 H Calcium 8.4 L Troponin I High Sens 4 Radiography Diagnostic Testing: Clinical Impression(s) from Imaging Studies Chest X-Ray 03/19/23 14:43 IMPRESSION: No acute cardiopulmonary disease. Electronically Signed: Karthik James MD at 15:37 EDT Reading Location ID and State: [facility] / Unknown , Service support , Discharge Plan Triage Chief Complaint: Chest Pain ED Provider: Scot Viera Dx/Rx/DC Orders Clinical Impression: Myalgia, Diarrhea, Chest pain Instructions: ED Chest Pain, Uncertain Cause Prescriptions: No Action omeprazole 20 MG capsule 20 mg PO DAILY Patient Comments: GERD multivitamin with folic acid [Thera] 1 TABLET tablet 1 tab PO DAILY Patient Comments: SUPPLEMENT gabapentin 300 MG capsule 300 mg PO TID Patient Comments: PAIN, NEUROPATHY clopidogrel 75 MG tablet 75 mg PO DAILY aspirin 81 MG tablet,chewable 81 mg PO DAILY sertraline 50 MG tablet 50 mg PO DAILY hydroxychloroquine 200 MG tablet 300 mg PO DAILYCM Primary Care Provider: Denny Woodard Referrals: Denny Woodard MD [Primary Care Provider] - 3-5 Days if not improving Disposition Disposition: Home, Self Care
[2023-03-19 14:36] VITALS: O2SAT 98
--- NOTE | 2023-03-19 14:43 | RAD_ITS ---
INDICATION: Chest Pain EXAMINATION/TECHNIQUE: X-RAY - AP portable upright XR Chest 1 View COMPARISON: Portable AP upright chest x-ray February 15, 2022 FINDINGS: LINES/DEVICES: None. LUNGS: No consolidation, edema or effusion. No pneumothorax. MEDIASTINUM AND CARDIOVASCULAR STRUCTURES: Cardiac silhouette not enlarged. Central airways and mediastinal contour are unremarkable. BONES AND SOFT TISSUES: Stable degenerative changes of the mid to lower thoracic spine as well as stable levoscoliosis at the thoracolumbar juncture. Early degenerative change also seen in the bilateral acromioclavicular joints. RAD/Chest 1 View (Portable) IMPRESSION: No acute cardiopulmonary disease. Electronically Signed: Karthik James MD at 15:37 EDT Reading Location ID and State: [id number] / Unknown , Service support ,
[2023-03-19 14:44] LABS: Absolute Lymphocyte Count 1.25 X10^3/uL (0.83-4.51); Absolute Neutrophil Count 6.2 X10^3/uL (2.0-7.7); Basophil# 0.04 X10^3/uL; Basophil% 0.5 % (0-1); Eosinophil# 0.12 X10^3/uL; Eosinophils% 1.4 % (0-5); Hematocrit 39.5 % (37-47); Lymphocyte # 1.25 X10^3/ul (0.83-4.51); Lymphocyte % 14.8 % (19-41); Mean Corp Hgb Conc 32.9 g/dL (32-36); Mean Corpuscular Hgb 28.8 pg (27.0-32.0); Mean Corpuscular Volume 87.4 fL (81-99); Mean Platelet Vol. 8.7 fl (6.2-12.0); Monocyte# 0.79 X10^3/uL; Monocyte% 9.4 % (0-10); NRBC Flagged by Analyzer 0 % (0-5); Neutrophil # 6.17 X10^3/uL (2.7-7.7); Neutrophil % 73.2 % (47-70); Platelet Count 341 K/mm3 (150-450); RBC Distribution Width CV 13.2 % (11.6-14.6); RBC Distribution Width SD 42.5 fl (35.1-43.9); Red Blood Count 4.52 M/mm3 (4.2-5.4); White Blood Count 8.4 K/mm3 (4.4-11.0)
[2023-03-19 15:01] LABS: Anion Gap 8 (5-15); BUN 7 mg/dL (7-18); BUN/Creat Ratio 10.1 RATIO (10-20); Calcium,Total 8.4 mg/dL (8.5-10.1); Chloride 98 mmol/L (98-107); Creatinine, Serum 0.69 mg/dL (0.55-1.02); EST Glomerular Filtration Rate 92 mL/min (>60); Est Glom Filt Rate - Afr Amer 112 mL/min (>60); Estimated Creatinine Clearance 75.81 ml/min; Glucose 129 mg/dL (74-106); Potassium 3.1 mmol/L (3.5-5.1); Sodium Level 134 mmol/L (136-145); Troponin-I HS 4 pg/mL (3.0-54.0)
[2023-03-19 16:31] VITALS: BP 130/69; PULSE 94; RESP 16; O2SAT 97
== END 2023-03-19 16:35 | disposition home or self-care (01) ==
PROVIDERS: Emergency Provider Emergency Medicine; PCP Family Medicine; Visit Provider Emergency Medicine
DX: M79.10 Myalgia, unspecified site (principal); R19.7 Diarrhea, unspecified; R07.9 Chest pain, unspecified; K21.9 Gastro-esophageal reflux disease without esophagitis; Z79.82 Long term (current) use of aspirin; Z79.899 Other long term (current) drug therapy; Z86.718 Personal history of other venous thrombosis and embolism
CPT/HCPCS: 71045; 80048; 84484; 85025; 87428; 93005; 99285; J7040; A4216

== ENCOUNTER 2024-03-07 07:04 | Emergency (ER) | payer OTHER, SELFPAY ==
[2024-03-07 07:04] VITALS: BP 161/88; PULSE 91; RESP 14; TEMP 36.6; O2SAT 96
--- NOTE | 2024-03-07 07:14 | EX.ED.VIS.EY ---
HPI History of Present Illness Chief Complaint: Eye Problem Informant: patient Onset/Context/Timing Location: Left Eye Onset: Today Context: Sudden Onset Timing: Continuous Current Severity: Severe Worsened by: Opening her eye Relieved by: Closing her eye Associated Symptoms Associated Symptoms - Eyes: Foreign body sensation, Pain and Redness; Negative for Crusting, Drainage, Eyelid swelling, Itching, Matting or Photophobia History of injury: No Visual correction: Glasses Narrative Narrative: Patient presents with foreign body sensation in her eye that began this morning. Patient states she woke up this morning and felt like there was something in her eye. Patient admits to some redness to her eye. Patient states her pain is sharp. Patient denies any visual changes. Patient states her pain is worse when she opens her eye and better when she keeps her eyes closed. Patient denies any trauma or injury. Patient denies any visual changes. [facility] Medical History (Updated 03/07/24 @ 09:[address] Perico Reddy DO) History of DVT of lower extremity GERD (gastroesophageal reflux disease) Fibroids Psoriatic arthritis Home Medications ?Medication ?Instructions ?Recorded ?Last Taken ?Type multivitamin with folic acid 400 1 tab PO DAILY 08/14/13 03/23/14 History mcg tablet (Thera) 500 mg omeprazole 20 mg capsule,delayed 20 mg PO DAILY 08/14/13 09/27/20 History release gabapentin 300 mg capsule 300 mg PO TID 09/10/14 09/27/20 History aspirin 81 mg chewable tablet 81 mg PO DAILY 10/07/16 Unknown History clopidogrel 75 mg tablet 75 mg PO DAILY 10/07/16 Unknown History sertraline 50 mg tablet 50 mg PO DAILY 02/06/20 Unknown History hydroxychloroquine 200 mg tablet 300 mg PO DAILYCM RA 09/22/20 Unknown History Allergy/AdvReac Type Severity Reaction Status Date / Time lansoprazole (From Prevacid) Allergy Unknown Unknown Verified 08/08/22 13:40 Penicillins Allergy Unknown Rash Verified 08/08/22 13:40 Surgical History (Updated 03/07/24 @ 07:[address] Perico Reddy DO) History of hysterectomy Hx laparoscopic cholecystectomy Social History Smoking Status: Never smoker substance use type: does not use ROS ROS ED Constitutional Constitutional ED: Denies chills or fever(s) Eyes Eyes: Denies blurry vision or change in vision ENT ENT ED: Denies rhinorrhea or sore throat Cardiovascular Cardiovascular: Denies chest pain or palpitations Respiratory/Chest Respiratory/Chest: Denies cough or dyspnea Gastrointestinal Gastrointestinal: Denies nausea or vomiting Genitourinary Genitourinary ED: Denies dysuria or hematuria Musculoskeletal Musculoskeletal: Denies back pain or neck pain Integumentary Denies abscess or rash Neurologic Neurologic: Reports headache(s); Denies weakness Allergic/Immunologic Allergic/Immunologic ED: Denies mouth swelling or urticaria EXAM Physical Exam Const Vital Signs: 03/07/24 07:04 Temperature 98 F Temperature Source Temporal Pulse Rate 91 Respiratory Rate 14 Blood Pressure 161/88 H Blood Pressure Mean 112 Pulse Ox 96 Oxygen Delivery Method Room Air Positive well nourished and well developed General Appearance ED: well developed and NAD HEENT atraumatic Eyes Eyes Narrative: Pupils are equal, round, reactive to light bilaterally. Extraocular muscles are intact. Conjunctiva is injected on the left. Tetracaine and fluorescein dye was applied. On gross examination, there is no corneal abrasion or foreign body visualized. There is good red reflex. Funduscopic examination was not well-tolerated. On slit-lamp examination, there was no corneal abrasion or foreign body noted. Anterior chamber was clear. There is no cell or flare noted. I attempted to invert the upper eyelid but patient was unable to tolerate this as well. Neuro oriented x3, CN's II-XII intact bilaterally, moves all extremities and no sensory deficits noted Sensorium / Orientation: alert Motor Exam: strength 5/5 throughout MDM MDM MDM Narrative Medical decision making narrative: The left eye was irrigated with normal saline through a Trev lens. Patient felt better after this. Patient states that it still feels like there may be something under her eyelid. I advised the patient there could be a foreign body under her eyelid but the irrigation should have help with that. Patient was given erythromycin ophthalmic ointment. Patient was instructed to follow-up with her server administrator or surgical clinical reviewer in 2 to 3 days. Patient was instructed to return if worse in any way. Patient understood and was agreeable with plan. All questions were answered. Discharge Plan Triage Chief Complaint: Eye Problem ED Provider: Perico Reddy Dx/Rx/DC Orders Clinical Impression: Foreign body sensation, left eye, Elevated blood pressure reading Instructions: ED Conjunctival Foreign Body, Resolved Prescriptions: No Action omeprazole 20 MG capsule 20 mg PO DAILY Patient Comments: GERD multivitamin with folic acid [Thera] 1 TABLET tablet 1 tab PO DAILY Patient Comments: SUPPLEMENT gabapentin 300 MG capsule 300 mg PO TID Patient Comments: PAIN, NEUROPATHY clopidogrel 75 MG tablet 75 mg PO DAILY aspirin 81 MG tablet,chewable 81 mg PO DAILY sertraline 50 MG tablet 50 mg PO DAILY hydroxychloroquine 200 MG tablet 300 mg PO DAILYCM Primary Care Provider: Denny Woodard Referrals: Denny Woodard MD [Primary Care Provider] - 3-5 Days Print Language: Arabic Disposition Disposition: Home, Self Care
[2024-03-07] MEDS: Fluorescein 1 MG STRIP 1 STRIP OPHTHALMIC (07:16)
[2024-03-07] MEDS: Tetracaine 0.5% Ophthalmic Bottle 1 DRP OPHTHALMIC (07:16)
[2024-03-07] MEDS: Erythromycin Ophthalmic (NSY) 1 GM OPTH.TUBE 1 APPLIC LEFT EYE (09:37)
[2024-03-07 09:41] VITALS: BP 139/57; PULSE 64; RESP 15; TEMP 36.3; O2SAT 99
== END 2024-03-07 09:41 | disposition home or self-care (01) ==
PROVIDERS: Emergency Provider Emergency Medicine; PCP Family Medicine; Visit Provider Emergency Medicine
DX: H57.8A2 Foreign body sensation, left eye (principal); L40.50 Arthropathic psoriasis, unspecified; R03.0 Elevated blood-pressure reading, without diagnosis of hypertension; K21.9 Gastro-esophageal reflux disease without esophagitis; Z86.718 Personal history of other venous thrombosis and embolism; Z79.899 Other long term (current) drug therapy; Z79.82 Long term (current) use of aspirin
CPT/HCPCS: 99284; J7030

== ENCOUNTER → 2024-12-18 | Outpatient (CLI) | payer OTHER, SELFPAY ==
--- NOTE | 2024-12-18 06:55 | CT_ITS ---
PROCEDURE: EXTREMITY LOWER WITHOUT CONTRA 12/18/2024 REASON FOR EXAM: Pre-surgical planning, VARUS DEFORMITY, NOT ELSEWHERE CLASSIFIED, RIGHT KNEE TECHNIQUE: One or more dose reduction techniques were used (e.g., Automated exposure control, adjustment of the mA and/or kV according to patient size, use of iterative reconstruction technique Axial CT images of the right lower extremity joints, including the hip, knee and ankle obtained with intravenous contrast. Coronal and Sagittal reconstruction series were provided. RADIATION DOSE SUMMARY: CTDlvol: 20 mGy DLP: 1100 mGycm COMPARISON: None. FINDINGS: Bones: No acute osseous fracture or dislocation. Unable to measure the [id number] angle as standing AP/long leg radiographs were not obtained. Joints: The joint spaces of the right hip, knee and ankle are maintained. Mild degenerative changes are present. Soft Tissues: No large hematoma, soft tissue gas, or radiopaque foreign body. Other: Prior hysterectomy. The urinary bladder is minimally distended and grossly unremarkable. CT/Extremity Lower without Contra IMPRESSION: Pre-surgical planning CT of the right hip, knee and ankle. Unable to measure th e [id number] angle as standing AP/long leg radiographs were not obtained. Reading Location: [id number]
--- NOTE | 2024-12-18 06:58 | EKG12_ITS ---
Test Reason : PREOP Blood Pressure : */* mmHG Vent. Rate : 79 BPM Atrial Rate : 79 BPM P-R Int : 192 ms QRS Dur : 76 ms QT Int : 362 ms P-R-T Axes : 57 6 48 degrees QTcB Int : 415 ms Normal sinus rhythm Low voltage QRS Borderline ECG Confirmed by Romero Rosa ([id number]), international editorial producer VIOLET MATUTE ([id number]) on 12/21/2024 8:51:25 AM Referred By: Andrea Harmon Confirmed By: Romero Rosa
== END | disposition home or self-care (01) ==
LOC: CT 06:54
PROVIDERS: PCP Family Medicine; Referring Provider Specialist; Visit Provider Specialist
DX: Z01.810 Encounter for preprocedural cardiovascular examination (principal); M21.161 Varus deformity, not elsewhere classified, right knee; M17.11 Unilateral primary osteoarthritis, right knee; M25.561 Pain in right knee
CPT/HCPCS: 73700; 93005

== ENCOUNTER 2025-01-11 07:14 | Observation (INO) | payer OTHER, SELFPAY ==
[2024-12-18 07:46] LABS: Absolute Lymphocyte Count 1.51 X10^3/uL (0.83-4.51); Absolute Neutrophil Count 3.3 X10^3/uL (2.0-7.7); Basophil# 0.07 X10^3/uL; Basophil% 1.2 % (0-1); Eosinophil# 0.24 X10^3/uL; Eosinophils% 4.1 % (0-5); Hematocrit 37.2 % (37-47); Hemoglobin 12.7 g/dL (12.0-15.0); Lymphocyte # 1.51 X10^3/ul (0.83-4.51); Lymphocyte % 25.9 % (19-41); Mean Corp Hgb Conc 34.1 g/dL (32-36); Mean Corpuscular Hgb 29.5 pg (27.0-32.0); Mean Corpuscular Volume 86.3 fL (81-99); Mean Platelet Vol. 8.3 fl (6.2-12.0); Monocyte# 0.72 X10^3/uL; Monocyte% 12.3 % (0-10); NRBC Flagged by Analyzer 0 % (0-5); Neutrophil # 3.27 X10^3/uL (2.7-7.7); Platelet Count 338 K/mm3 (150-450); RBC Distribution Width CV 13.1 % (11.6-14.6); Red Blood Count 4.31 M/mm3 (4.2-5.4); White Blood Count 5.8 K/mm3 (4.4-11.0)
[2024-12-18 08:15] LABS: Albumin, Serum 4.3 g/dL (3.4-4.8); Anion Gap 11 (5-15); BUN 21 mg/dL (4-19); BUN/Creat Ratio 31.3 RATIO (10-20); Calcium,Total 8.8 mg/dL (7.6-11.0); Carbon Dioxide 24.8 mmol/L (21.0-32.0); Chloride 99 mmol/L (98-108); Creatinine, Serum 0.68 mg/dL (0.70-1.20); EST Glomerular Filtration Rate 99 (>60); Glucose 118 mg/dL (70-99); Magnesium 2.2 mg/dL (1.5-2.2); Potassium 4.2 mmol/L (3.3-5.1); Sodium Level 135 mmol/L (133-145)
--- NOTE | 2024-12-18 11:16 | PAT.ANESEVAL ---
Pre-Assessment Diagnosis/Proposed Procedure Planned Operative Procedure(s): (R) Total Knee Replacement Robotic Arm Montez Anesthesia History Anesthesia History - market risk manager: Anesthesia History - market risk manager Hx Hospitalization No 12/14/24 11:48 Any Problems With Anesthesia No 12/14/24 11:48 Cholinesterase deficiency No 12/14/24 11:48 You/Your Family Experience No 12/14/24 11:48 fever (hyperthermia) with Relationship Recent Exposure to Contagious No 09/27/20 10:12 Disease Does patient have nerve No 12/14/24 11:48 stimulator Patient instructed to have device shut off --Does patient have Pacemaker or ICD? When Was Last Pacemaker Check QUESTION #4 FULL TEXT: You/Your Family Experience fever (hyperthermia) with Anesthesia Last Oral Intake Last Oral intake: Last Oral Intake NPO since Meds taken in AM with sips of water? Meds patient instructed to take am of surgery PONV PONV - market risk manager: PONV - market risk manager Female Yes 12/14/24 11:48 HX of Motion Sickness Yes 12/14/24 11:48 HX of N/V After Surgery No 12/14/24 11:48 Non-Smoker Yes 12/14/24 11:48 Duration of Surgery greater Yes 12/14/24 11:48 than 60 minutes Number of Risk Factors 4 12/14/24 11:48 PONV Score Severe Risk 12/14/24 11:48 Height & Weight Height & Weight: Anesthesia: Height & Weight Height 5 ft 4 in 03/07/24 07:04 Respiratory Assessment Respiratory Assessment - market risk manager: Respiratory Tract Infection Hx - market risk manager Hx Respiratory Tract Infection No 12/14/24 11:48 STOP Sleep Apnea STOP Sleep Apnea - market risk manager: STOP Sleep Apnea - market risk manager Hx Hypertension Yes 12/14/24 11:48 Hx Sleep Apnea No 12/14/24 11:48 CPAP No 09/27/20 12:59 BIPAP No 09/22/20 09:26 Do you snore loudly (louder No 12/14/24 11:48 than talking or can be heard Do you often feel tired/ No 12/14/24 11:48 fatigued/ sleepy during daytime? Has anyone observed you stop No 12/14/24 11:48 breathing during sleep? STOP Results Negative 12/14/24 11:48 QUESTION #5 FULL TEXT : Do you snore loudly (louder than talking or can be heard through closed doors)? Tobacco Use History Tobacco Use History - market risk manager: Tobacco Use History - market risk manager Tobacco Use Smoking Status Never smoker 12/14/24 11:48 Hx Tobacco Use No 12/14/24 11:48 Years Smoking Packs Smoked per Day Smoking Cessation Date was within the last 15 years Hx Smoking Cessation Date Hx Smoking Cessation No 12/14/24 11:48 Counseling Hematologic Medial History Hematologic Hx - market risk manager: Hematologic Medical Hx - accountancy professor Hx of Blood Transfusion No 12/14/24 11:48 Hx of Transfusion in last 3 No 12/14/24 11:48 Months Date of Last Transfusion (if within last 3 months) Ever experience any problems No 12/14/24 11:48 with transfusion(s)? Specify any problems Hx of Preganancy in last 3 No 12/14/24 11:48 Months Nurse Filling Out Transfusion MGRISKYLARITH 12/14/24 11:48 & Questions: Date: 12/14/24 12/14/24 11:48 Time: 11:50 12/14/24 11:48 Patient unable to answer at this time (ie. confused, unrespo /Reproduction History /Reproductive History - market risk manager: /Reproductive Hx- market risk manager Hx Now Gestational Age (in weeks): EDC: Hx Hx Para [facility]x [facility] Medical History (Updated 12/14/24 @ 11:56 by Dana Lovleace) Wears contact lenses Wears glasses Anxiety Alcohol use Arthritis Non-smoker Hypertension History of DVT of lower extremity GERD (gastroesophageal reflux disease) Fibroids Psoriatic arthritis Home Medications ?Medication ?Instructions ?Recorded ?Last Taken ?Type multivitamin with folic acid 400 1 tab PO DAILY 08/14/13 03/23/14 History mcg tablet (Thera) 500 mg omeprazole 20 mg capsule,delayed 20 mg PO DAILY 08/14/13 09/27/20 History release gabapentin 300 mg capsule 300 mg PO TID 09/10/14 09/27/20 History aspirin 81 mg chewable tablet 81 mg PO DAILY 10/07/16 Unknown History clopidogrel 75 mg tablet 75 mg PO DAILY 10/07/16 Unknown History sertraline 50 mg tablet 50 mg PO DAILY 02/06/20 Unknown History hydroxychloroquine 200 mg tablet 300 mg PO DAILYCM RA 09/22/20 Unknown History metoprolol tartrate 50 mg tablet 50 mg PO DAILY 12/14/24 Unknown History (Lopressor) Allergy/AdvReac Type Severity Reaction Status Date / Time lansoprazole (From Prevacid) Allergy Unknown Unknown Verified 12/14/24 11:43 Penicillins Allergy Unknown Rash Verified 12/14/24 11:43 Surgical History (Updated 12/14/24 @ 11:47 by Dana Lovelace) History of colonoscopy History of hysterectomy Hx laparoscopic cholecystectomy Social History Smoking Status: Never smoker substance use type: does not use Audit: Pertinent Findings Pertinent Findings EKG Perinent findings: March 19, 2023. Normal sinus rhythm 80 bpm. Possible inferior infarct. Also noted on January 2022. Recommendation Anesthesia Recommendation Anesthesia recommendation: OPTIMIZED for anesthesia
[2025-01-11] VITALS (17 sets, daily range): BP systolic 107–130; BP diastolic 42–78; PULSE 76–89; RESP 16–18; TEMP 36.1–37.1; O2SAT 4–100; BMI 29.5; BMI 29.3
[2025-01-11] MEDS: Acetaminophen 500 MG Tablet 1000 MG PO ×3 (06:04→20:28)
[2025-01-11] MEDS: Gabapentin 600 MG Tablet PO (06:04)
[2025-01-11] MEDS: Lactated Ringers 1,000 ML 999 ML IV ×2 (06:17→10:25)
[2025-01-11] MEDS: Magnesium 1 GM over 15 mins IV (06:18)
[2025-01-11 06:19] LABS: Bedside Glucose 109 mg/dL (74-106)
[2025-01-11] MEDS: Lactated Ringers 1,000 ML 75 ML IV ×2 (06:27→15:46)
--- NOTE | 2025-01-11 06:33 | PRE.ANES_ITS ---
ASA Classification* ASA Classification ASA Classification: 2 Assessment & Plan Anesthesia* Anesthesia Assessment Anesthesia Assessment: Discussed sedation and/or anesthesia options, risks, benefits, and alternatives with patient/parents/legal guardian/POA. Questions invited. The patient/parents/legal guardian/POA seems to understand and agrees to proceed with anesthesia plan. Reviewed the physical assessment, medical history, allergy history and patient home medications list prior to surgery/procedure/anesthetic and documented any changes. Performed airway and anesthesia risk assessments. Anesthesia Type Anesthesia Type: Spinal and Block (Patient is consented for adductor canal block.) History Source History Obtained from:: Patient and Chart Anesthesia Focused Assessment* Temperature: 97.5 F Pulse Rate: 76 Blood Pressure: 115/61 Respiratory Rate: 16 Pulse Ox: 98 Oxygen Delivery Method: Room Air Airway Assessment Mouth opens: >3 cm Mallampati Score: IV Teeth Condition: Caps/Crowns (Patient has several crowns. They are tight.) Neck Range of motion (ROM): Full ROM Focused Labs Anesthesia Preop lab: CBC WBC 5.8 K/mm3 (4.4-11.0) 12/18/24 07:12/18/24 RBC 4.31 M/mm3 (4.2-5.4) 12/18/24 07:12/18/24 Hgb 12.7 g/dL (12.0-15.0) 12/18/24 07:31 12/18/24 Hct 37.2 % (37-47) 12/18/24 07:31 12/18/24 Plt Count 338 K/mm3 (150-450) 12/18/24 07:31 12/18/24 CHEMISTRY Potassium 4.2 mmol/L (3.3-5.1) 12/18/24 07:31 12/18/24 Sodium 135 mmol/L (133-145) 12/18/24 07:12/18/24 Magnesium 2.2 mg/dL (1.5-2.2) 12/18/24 07:31 12/18/24 Phosphorus 2.9 mg/dL (2.5-4.9) 08/15/13 06:00 08/15/13 BUN 21 mg/dL (4-19) H 12/18/24 07:31 12/18/24 Creatinine 0.68 mg/dL (0.70-1.20) L 12/18/24 07:31 Glucose 118 mg/dL (70-99) H 12/18/24 07:31 12/18/24 POC Glucose 109 mg/dL (74-106) H 01/11/25 05:55 01/11/25 TSH 2.12 uIU/mL (0.358-3.74) 10/19/13 09:11 COAG PT 18.0 SECONDS (11.9-14.4) H 03/12/14 08:50 03/02 09/15 Pre-Assessment Diagnosis/Proposed Procedure Planned Operative Procedure(s): (R) Total Knee Replacement Robotic Arm Assist Anesthesia History Anesthesia History - control clerk food and beverage: Anesthesia History - control clerk food and beverage Hx Hospitalization No 12/14/24 11:48 Any Problems With Anesthesia No 12/14/24 11:48 Cholinesterase deficiency No 12/14/24 11:48 You/Your Family Experience No 12/14/24 11:48 fever (hyperthermia) with Relationship Recent Exposure to Contagious No 01/11/25 05:58 Disease Does patient have nerve No 12/14/24 11:48 stimulator Patient instructed to have device shut off --Does patient have Pacemaker No 01/11/25 05:59 or ICD? When Was Last Pacemaker Check QUESTION #4 FULL TEXT: You/Your Family Experience fever (hyperthermia) with Anesthesia Last Oral Intake Last Oral intake: Last Oral Intake NPO since 00:00 01/11/25 05:59 Meds taken in AM with sips of Yes 01/11/25 05:59 water? Meds patient instructed to take am of surgery Any additional information?: Yes Meds taken in AM with sips of water?: Yes PONV PONV - control clerk food and beverage: PONV - control clerk food and beverage Female Yes 12/14/24 11:48 HX of Motion Sickness Yes 12/14/24 11:48 HX of N/V After Surgery No 12/14/24 11:48 Non-Smoker Yes 12/14/24 11:48 Duration of Surgery greater Yes 12/14/24 11:48 than 60 minutes Number of Risk Factors 4 12/14/24 11:48 PONV Score Severe Risk 12/14/24 11:48 Height & Weight Height & Weight: Anesthesia: Height & Weight Height 5 ft 4 in 01/11/25 05:59 Weight: 77.927 kg 01/11/25 05:59 Body Mass Index (BMI) 29.5 01/11/25 05:59 Respiratory Assessment Respiratory Assessment - control clerk food and beverage: Respiratory Tract Infection Hx - control clerk food and beverage Hx Respiratory Tract Infection No 12/14/24 11:48 STOP Sleep Apnea STOP Sleep Apnea - control clerk food and beverage: STOP Sleep Apnea - control clerk food and beverage Hx Hypertension Yes 12/14/24 11:48 Hx Sleep Apnea No 12/14/24 11:48 CPAP No 09/27/20 12:59 BIPAP No 09/22/20 09:26 Do you snore loudly (louder No 12/14/24 11:48 than talking or can be heard Do you often feel tired/ No 12/14/24 11:48 fatigued/ sleepy during daytime? Has anyone observed you stop No 12/14/24 11:48 breathing during sleep? STOP Results Negative 12/14/24 11:48 QUESTION #5 FULL TEXT : Do you snore loudly (louder than talking or can be heard through closed doors)? Tobacco Use History Tobacco Use History - control clerk food and beverage: Tobacco Use History - control clerk food and beverage Tobacco Use Smoking Status Never smoker 12/14/24 11:48 Hx Tobacco Use No 12/14/24 11:48 Years Smoking Packs Smoked per Day Smoking Cessation Date was within the last 15 years Hx Smoking Cessation Date Hx Smoking Cessation No 12/14/24 11:48 Counseling Hematologic Medial History Hematologic Hx - control clerk food and beverage: Hematologic Medical Hx - clinical documentation clerk Hx of Blood Transfusion No 12/14/24 11:48 Hx of Transfusion in last 3 No 12/14/24 11:48 Months Date of Last Transfusion (if within last 3 months) Ever experience any problems No 12/14/24 11:48 with transfusion(s)? Specify any problems Hx of Preganancy in last 3 No 12/14/24 11:48 Months Nurse Filling Out Transfusion MGRIFFITH 12/14/24 11:48 & Questions: Date: 12/14/24 12/14/24 11:48 Time: 11:50 12/14/24 11:48 Patient unable to answer at this time (ie. confused, unrespo /Reproduction History /Reproductive History - control clerk food and beverage: /Reproductive Hx- control clerk food and beverage Hx Now Gestational Age (in weeks): EDC: Hx Hx Para Hx Section SAB Active Medications Active Medications: Current Medications Generic Name Dose Route Start Last Admin Trade Name Luis Manuel PRN Reason Stop Dose Admin Acetaminophen 1,000 mg 01/11/25 07:30 01/11/25 06:04 Acetaminophen 500 Mg Tablet PO 01/11/25 07:31 1,000 mg PREOP ONE Administration Tranexamic Acid 2,000 mg/ 0 mg 01/11/25 07:30 Sodium Chloride 100 ml OPERA.SITE 01/11/25 07:31 X1 ONE Sodium Chloride 77.4 ml/ 0 ml 01/11/25 07:30 Ropivacaine 200 mg/ OPERA.SITE 01/11/25 07:31 Epinephrine HCl 0.6 mg/ INTRAOP ONE Ketorolac Tromethamine 30 mg/ Morphine Sulfate 5 mg Dexamethasone Sodium Phosphate 10 mg 01/11/25 07:30 Dexamethasone 10 Mg/Ml Vial IV 01/11/25 07:31 INTRAOP ONE Gabapentin 600 mg 01/11/25 07:30 01/11/25 06:04 Gabapentin 600 Mg Tablet PO 01/11/25 07:31 600 mg PREOP ONE Administration Lactated Ringer's 1,000 mls @ 999 mls/hr 01/11/25 07:30 01/11/25 06:17 IV 01/11/25 08:30 999 mls/hr .Q1H1M ISIDRO Administration Cefazolin Sodium 2 gm/ Sodium 110 mls @ 150 mls/hr 01/11/25 07:30 Chloride IV 01/11/25 08:13 INTRAOP ONE Lactated Ringer's 1,000 mls @ 999 mls/hr 01/11/25 07:30 IV 01/11/25 08:30 .Q1H1M ISIDRO Lactated Ringer's 1,000 mls @ 125 mls/hr 01/11/25 07:30 IV 01/11/25 15:29 .Q8H ISIDRO Magnesium Sulfate 1 gm/ 102 mls @ 408 mls/hr 01/11/25 07:30 01/11/25 06:18 Dextrose IV 01/11/25 07:44 408 mls/hr INTRAOP ONE Administration Lactated Ringer's 1,000 mls @ 75 mls/hr 01/11/25 06:30 01/11/25 06:27 IV 75 mls/hr .[id number] ISIDRO Administration Insulin Human Lispro 1 - 6 unit 01/11/25 07:30 Insulin Lispro 100 Unit/Ml Insuln.Pen SC Q4H PRN PRN BG>/= 180, SEE PROTOCOL Protocol PFSH Medical History Wears contact lenses Wears glasses Anxiety Alcohol use Arthritis Non-smoker Hypertension History of DVT of lower extremity GERD (gastroesophageal reflux disease) Fibroids Psoriatic arthritis Home Medications ?Medication ?Instructions ?Recorded ?Last Taken ?Type multivitamin with folic acid 400 1 tab PO DAILY 01/10/25 History mcg tablet (Thera) omeprazole 20 mg capsule,delayed 20 mg PO DAILY 01/11/25 04:00 History release gabapentin 300 mg capsule 300 mg PO TID 09/10/1401/10 History aspirin 81 mg chewable tablet 81 mg PO DAILY 10/07/16 01/03/25 History clopidogrel 75 mg tablet 75 mg PO DAILY 10/07/16 0512/25 History sertraline 50 mg tablet 50 mg PO DAILY 02/06/2012/31 History hydroxychloroquine 200 mg tablet 300 mg PO DAILYCM RA 09/22/20 01/10/25 History losartan 50 mg tablet 50 mg PO DAILY 01/11/2512/31 04:00 History Allergy/AdvReac Type Severity Reaction Status Date / Time lansoprazole (From Prevacid) Allergy Unknown Unknown Verified 01/11/25 05:55 Penicillins Allergy Unknown Rash Verified 01/11/25 05:55 Surgical History History of colonoscopy History of hysterectomy Hx laparoscopic cholecystectomy Social History Smoking Status: Never smoker substance use type: does not use Review of Systems (Anesthesia) ROS Narrative System reviewed and no additional complaints, except as documented.
[2025-01-11] MEDS: Cefazolin 2 GM in 0.9% Normal Saline (100mL Bag) 100 ML IV (07:30)
--- NOTE | 2025-01-11 07:30 | KNEE_PTH ---
PATIENT: BHUPENDRA SILVERIO LOC: MS3 U#:[id number] AGE/SX: 59/F ROOM: [facility] [place]01/11/[address]: Dr. Andrea Harmon MD : 1965 BED: 1 DIS: 01/12/2025 SPEC #: [id number] RECD: 01/11/25 12:55 STATUS: JESSIKA REUche #: [id number] ARIA: 01/11/25 07:[address]: Andrea Harmon DEPT: SURGICAL PATHOLOGY RECD BY: Trev De Paz ENTERED: 01/11/25 13:31 SP TYPE: TOTAL KNEE OTHR DR: DO Dr. Denny Miles MD Tissues: A - Knee, NOS Procedures: Decalcification bone/plaque Surgery Specimen Level III HEADER OPERATION: Total knee replacement robotic arm assist PRE-OP DIAGNOSIS: Primary osteoarthritis right knee, varus deformity right knee TISSUE SUBMITTED: A- Debrided bone and tissue right knee MICROSCOPIC DIAGNOSIS A. Right knee, arthroplasty: * Benign cartilage and bone with degenerative changes MICROSCOPIC DESCRIPTION Slides are reviewed. GROSS DESCRIPTION A. Received in formalin in a container labeled with the patient's name, date of , and debrided bone and tissue right knee are multiple gage, firm, and irregular fragments of bone and minimal soft tissue measuring 9.0 x 8.0 x 2.3 cm in aggregate. The specimen consists of, but is not limited to, medial/lateral condyle and tibial plateau. The resection margins are smooth, and firm and the cortical surfaces are pitted and granular with smooth areas of eburnation. Sectioning reveals firm and unremarkable surfaces. Human Services Program Specialist sections are submitted in A1 following decalcification. [facility] 01-11-2025 CPT:[id number]
[2025-01-11] MEDS: dexAMETHasone 10 MG/ML Vial IV (07:40)
[2025-01-11] MEDS: TRANEXAMIC ACID 2,000 MG, 0.9% Normal Saline (100mL Bag) 100 ML OPERA.SITE (08:33)
[2025-01-11] MEDS: JPS (Morphine 10mg/ml) OPERA.SITE (08:34)
--- NOTE | 2025-01-11 08:44 | PCM.OPRPT ---
Operative Report (Standard) Operative Information Date of Procedure: 01/11/25 Pre-Operative Diagnosis: Right knee primary osteoarthritis Post-Operative Diagnosis: Right knee primary osteoarthritis Surgery/Procedure Performed: Right knee minimally invasive robotic assisted total arthroplasty intel recruiter: Yes Solids Control Technician: Katarina Petersen Tasks completed by food and beverage assistant manager: Other (See body of operative report) Type of Anesthesia: Spinal RN Documented Start/Stop Times: Operation Date: 01/11/25 07:30 Case Time Into Pre-Op 01/11/25 05:33 Out of Pre-Op 01/11/25 07:29 Anesthesia Start 01/11/25 07:30 Into Room 01/11/25 07:30 Procedure Start 01/11/25 07:49 Procedure End 01/11/25 09:43 Anesthesia End 01/11/25 09:49 Out of Room 01/11/25 09:49 Procedure Start Time: 07:49 Procedure Stop Time: 09:43 Select all DRAINS/GRAFTS/IMPLANTS that apply: Prosthetic device Prosthetic device details: See body of operative report Special Medications: 2 g Ancef, 2 g topical TXA, 10 mg Decadron, joint cocktail (5 mg Duramorph, 30 mL of 0.5% Ropivicaine, 1000 units of epinephrine, 30 mg of Toradol) Estimated Blood Loss: 50 mL Fluids Replaced: 1500 mL crystalloid Specimen collected: Yes Description of specimen(s) removed: Bony cuts Description of surgery: Implants used: 1. Christel size 2 triathlon cruciate retaining distal femoral press-fit component 2. Christel size 3 press-fit tritanium tibial baseplate 3. Christel X3 9 mm CS polyethylene Brief history operative indications: 59-year-old f with history of right knee osteoarthritis with radiographic findings with loss of joint space, osteophyte formation and subchondral sclerosis. Failed conservative measures as mentioned in the H&P. Discussion of total knee arthroplasty as well as risk and benefits were discussed the patient including but not limited to blood loss, DVTs, PEs, neurovascular damage, general risk of anesthesia including loss of life, and stiffness or instability were discussed with patient. Patient demonstrated understanding and was able to sign informed consent. Procedure: On the date of procedure patient's right lower extremity was marked in the preoperative area. The patient was then taken back to the operating room where the patient was placed on the table in the supine position. All bony prominences were identified a well-padded. Anesthesia assumed control of the C-spine and airway and remained controlled throughout the remainder of the procedure. A tourniquet was placed on the right upper thigh and the leg was prepped in a sterile fashion. The surgeon then scrubbed at this time .Upon reentering the room right lower extremity was draped in a standard orthopedic fashion. A timeout was then called and everyone agreed upon the side, the site, the procedure to be performed, patient's identity and antibiotics given. Esmarch bandage was used to exsanguinate the extremity and the tourniquet was placed up to 250 mmHg with the knee in flexion. A midline skin incision was made and sharp dissection was taken down through skin subcutaneous tissue and fat. The standard medial parapatellar incision was made and the patella was subluxed laterally. An Appropriate deep MCL release was done and the fat pad was resected. Our attention was then directed to the patella. The patella was everted and found to be appropriate to retain her negative patella. The knee was then flexed up in 2 femoral pins were placed inside the incision and 2 tibial pins were placed outside the incision in the medial tibia bicortically. Once this was completed the 2 checkpoints in the femur and tibia were placed. Knee was then flexed up and the bony landmarks were registered. Once this was completed knee was taken through range of motion and manually stressed allowing us to a plan for an appropriate tibial cut. The robotic arm was brought into the field sterilely and checkpoint and saw were registered. Based on the patient's deformity the tibial cut was made in 3 degrees of varus. At this time the tensioner was then placed in the joint and ligament tension was checked at 90 degrees and full extension. Based on the patient's ligamentous tension appropriate adjustments were made to the operative plan and ligament releases were done. Once we were happy with our operative plan with balanced flexion and extension gaps our attention was directed to the femur. The robot was brought into the field sterilely and registered. Posterior condylar cuts, anterior chamfer cuts and anterior cuts were appropriately made for a size 2 femur. When these were completed the saws were switched out in the distal femoral and posterior chamfer cuts were made. Protecting the soft tissue throughout this time. A size 3 tibial base plate was selected. the knee was flexed to 90 degrees and the soft tissues and posterior osteophytes were removed from the joint. 40 cc of the periarticular injection was injected into the posterior medial corner of the joint. The appropriate trials were then placed on the femur and tibia. A trial polyethylene was trialed to ensure proper balancing and stability of the knee. The appropriate tibial internal rotation was then marked with a bovie. Our attention was then directed to the patella. Patellar tracking was checked and deemed appropriate. Once we were happy lug holes were drilled for the femur and trial components were removed. The tibia was subluxed and pinned into place and the keel was punched and drilled appropriately. Final components were verified and opened. The wound was copiously irrigated with normal saline. When the cement was ready the components were impacted into place starting with the tibia then the femur, finally the patella was compressed into place. The trial poly component was placed and the knee was placed in full extension. Once the the implants were secured, the tracking, alignment and balance were verified and a size 9 mm CS polyethylene component was placed. Once the final components were placed a 3-minute dilute Betadine lavage was performed followed by an Irrisept lavage was performed and the wound was copiously irrigated with normal saline solution and the periarticular injection was given. The wound was closed in a layer sheppard fashion using #1 vicryl interrupted sutures for the arthrotomy, 2-0 interrupted Vicryl suture for the subcuticular layer and donaldo for final skin closure. A sterile compressive dressing was then placed. The patient was then awakened from anesthesia, transferred to the [facility] and transferred to the PACU for recovery. Post op plan DVT ppx: Xarelto due to previous VTE, thigh high compression stockings Follow up: in office in 2 weeks for wound check PT: to start POD #0 at hospital, outpatient PT should be arranged. My physician assistant cook was a vital part of this case, they was important because there was not another skilled set of hands available to their training and aptitude needed for safe and appropriate completion of this case. They were important in appropriate retraction during the case, and protection of soft tissues during bony cuts. In particular the experience and skill of this assistant cook made for safe retraction and exposure during implantation of medical implants without damage to vital soft tissues or structures. His intimate knowledge of the case and my steps aided in safe and expedient completion of the procedure as well as appropriate position of the leg during the case. He was also vital in assisting with closure under my direct supervision. Due to the complexity of this case robotic arm was used to assist in the surgery to improve accuracy and clinical outcomes. Surgical Findings: Stage IV osteoarthritis. Stable knee with good patella tracking Complications Complications: No Admit VTE Documentation VTE Present on Admission: No VTE Mechan Device Prophylaxis: SCD's and Thigh High MARV Hose VTE Pharm Prophylaxis ordered?: Yes
--- NOTE | 2025-01-11 09:59 | PCM.POST.ANE ---
Anesthesia: Postop Eval I Current Vital Signs Temperature: 98.8 F Pulse Rate: 85 Blood Pressure: 125/65 Respiratory Rate: 18 Pulse Ox: 95 Oxygen Delivery Method: Room Air Assessment Airway patent: Yes Spontaneous unlabored respirations: Yes Mental status: Awake and Calm nausea: No Vomiting: No Anesthesia Complication: No Fluid Hydration Crystalloid volume administer (ml): 1,800 Total IV fluid infused: 1,800 Progress Note Anesthesia document: Postop Eval 1 completed: Yes
--- NOTE | 2025-01-11 10:10 | RAD_ITS ---
PROCEDURE: KNEE 1 OR 2 VIEWS 01/11/2025 REASON FOR EXAM: TKA TECHNIQUE: Two views of the right knee COMPARISON: None FINDINGS: There is a total knee prosthesis in position. Soft tissue air and surgical clips are noted consistent with recent surgery. RAD/Knee 1 or 2 Views IMPRESSION: Hardware in position. Reading Location: [facility]
[2025-01-11] MEDS: Ensure Surgery 237 ML LIQUID PO (12:22)
--- NOTE | 2025-01-11 14:27 | PCM.PROGNOTE ---
Subjective Subjective Patient was seen and examined at the request of orthopedic surgery, she underwent minimally invasive robotic right knee replacement today due to severe osteoarthritis. At the time my examination, patient is alert and does not seem to be in any distress. 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 Objective Data Objective Data Vital Signs: Vital Signs Temp Pulse Resp BP Pulse Ox O2 Del Method O2 Flow Rate 97.6 F L 88 16 117/61 96 Room Air 4 01/11/25 13:43 01/11/25 13:43 01/11/25 13:43 01/11/25 13:43 01/11/25 13:43 01/11/25 13:43 01/11/25 11:21 Oxygen Flow Rate (L/min) 4 Oxygen Delivery Method Room Air Weight: 77.92 kg Body Mass Index (BMI) 29.3 Intake & Output: Intake and Output for Last 24 Hours 01/09/25 01/10/25 01/11/25 23:59 23:59 23:59 Intake Total 1999 Balance 1999 Lab / Micro Data 12/18/24 07:31 12/18/24 07:31 Labs: Laboratory Results - last 24 hr 01/11/25 05:55: POC Glucose 109 H Micro: Microbiology 12/18/24 07:31 Swab (Method) Nasal Screen MRSA/MSSA - Final Radiography Diagnostic Testing: Radiology Impression Knee X-Ray 01/11/25 10:10 IMPRESSION: Hardware in position. Reading Location: [facility] Physical Exam Const alert, oriented x3, no apparent distress and healthy appearing General Appearance: cooperative, well kempt and well developed Orientation / Consciousness: awake, oriented to person, oriented to place and oriented to time HEENT normocephalic, head/scalp atraumatic and moist oral mucous membranes Eyes PERRL, EOMs intact bilaterally and conjunctivae normal Neck supple, no JVD and thyroid normal General: trachea midline Resp normal respiratory effort, normal air movement and clear to auscultation bilaterally Auscultation: Negative for rales, rhonchi or wheezes Cardio regular rate, regular rhythm, S1 normal heart sound, S2 normal heart sound, no murmurs, no rub and no gallops GI normal to inspection, nondistended, normoactive bowel sounds, soft to palpation, non-tender and non-distended Extremity normal capillary refill General Extremity: Negative for clubbing or cyanosis Skin no rashes or lesions noted Neuro oriented x3, CN's II-XII intact bilaterally, no focal motor deficits and no sensory deficits noted Sensorium / Orientation: awake and alert Speech: speech normal Motor Exam: strength 5/5 throughout Psych thought process normal and affect normal Assessment & Plan Assessment/Plan (1) Osteoarthritis: PLAN: Plan 1. Essential hypertension-patient will remain on her home medication, blood pressure will be monitored #2 osteoarthritis-patient is being seen by post tensioning ironworker and is currently on Plaquenil #3 history of May-Thurner syndrome-patient usually takes aspirin 81 mg and clopidogrel 75 mg, she is off these medications at the present time because she is on Xarelto for prevention of DVT. The medical record indicates that the patient will stay on Xarelto for 2 weeks and then go on aspirin 81 mg twice a day and Plavix 75 mg a day for 2 weeks before resuming Plavix 75 mg once a day and aspirin 81 mg once a day. #4 chronic anxiety-patient is on Zoloft Total clinical time spent by myself addressing patient's medical issues, reviewing all of her data, and collaborating with patient's care team: 35 minutes Charges/Coding Visit Charges Inpatient E&M: 00008 Subs Hosp L2
[2025-01-11] MEDS: Cefazolin 1 GM/50 ML BAG IV ×2 (15:46→23:53)
--- NOTE | 2025-01-11 18:10 | POSTOPAN2_ITS ---
Anesthesia Postop Eval I Sum Postop Eval Completion status Anesthesia document: Postop Eval 1 completed: Yes Anesthesia Postop Eval I Summary Anesthesia Postop Eval I Summary: Anesthesia Postop Eval I: Assessment Summary Airway patent Yes 01/11/25 10:00 ADDICTION [email or web address] [email or web address] Spontaneous unlabored Yes 01/11/25 10:00 ADDICTION SOCIAL [email or web address].JBOR respirations Mental status Awake,Calm 01/11/25 10:00 ADDICTION [email or web address] [email or web address] nausea No 01/11/25 10:00 ADDICTION SOCIAL [email or web address] Vomiting No 01/11/25 10:00 ADDICTION [email or web address] [email or web address] Anesthesia Postop Eval I: Fluid Summary Crystalloid volume administer 1,800 01/11/25 10:00 ADDICTION SOCIAL [email or web address].JBOR (ml) Colloids volume administered ( ml) Blood Product volume administered (ml) Total IV fluid infused 1,800 01/11/25 10:00 ADDICTION SOCIAL [email or web address].[email or web address] Anesthesia Postop Eval I: Summary Notes Anesthesia Complication No 01/11/25 10:00 ADDICTION [email or web address] [email or web address].[email or web address] Anesthesia Complication Comment: Post-operative progress note Anesthesia: Postop Eval II Evaluation Mental status: Awake and Calm Pain Level: 2 nausea: No Vomiting: No Complications Anesthesia Complication: No
--- NOTE | 2025-01-11 18:10 | PCM.POSTANE2 ---
Anesthesia Postop Eval I Sum Postop Eval Completion status Anesthesia document: Postop Eval 1 completed: Yes Anesthesia Postop Eval I Summary Anesthesia Postop Eval I Summary: Anesthesia Postop Eval I: Assessment Summary Airway patent Yes 01/11/25 10:00 ASPHALT PAVER [email or web address] Spontaneous unlabored Yes 01/11/25 10:00 ASPHALT PAVER OPERATOR.JBOR respirations Mental status Awake,Calm 01/11/25 10:00 ASPHALT PAVER OPERATOR.JBOR nausea No 01/11/25 10:00 ASPHALT PAVER OPERATOR.JBOR Vomiting No 01/11/25 10:00 ASPHALT PAVER [email or web address].[email or web address] Anesthesia Postop Eval I: Fluid Summary Crystalloid volume administer 1,800 01/11/25 10:00 ASPHALT PAVER [email or web address].JBOR (ml) Colloids volume administered ( ml) Blood Product volume administered (ml) Total IV fluid infused 1,800 01/11/25 10:00 ASPHALT PAVER [email or web address].JBOR Anesthesia Postop Eval I: Summary Notes Anesthesia Complication No 01/11/25 10:00 ASPHALT PAVER [email or web address].JBOR Anesthesia Complication Comment: Post-operative progress note Anesthesia: Postop Eval II Evaluation Mental status: Awake and Calm Pain Level: 2 nausea: No Vomiting: No Complications Anesthesia Complication: No
[2025-01-11] MEDS: Senna/Docusate Sodium 1 Tablet 2 TABLET PO (20:29)
[2025-01-11] MEDS: oxyCODONE 5 MG Tablet PO (23:55)
[2025-01-12 03:21] VITALS: BP 118/68; PULSE 84; RESP 16; TEMP 36.7; O2SAT 99
[2025-01-12] MEDS: Acetaminophen 500 MG Tablet 1000 MG PO (06:11)
[2025-01-12] MEDS: oxyCODONE 5 MG Tablet PO ×2 (06:11→11:38)
[2025-01-12] MEDS: Rivaroxaban 10 MG Tablet PO (06:11)
[2025-01-12 06:53] VITALS: BP 114/57; PULSE 77; RESP 16; TEMP 36.6; O2SAT 99
--- NOTE | 2025-01-12 08:25 | PCM.PN.ORT ---
Subjective Subjective Patient is sitting comfortably in bed upon arrival. Patient states that she is ready to get home. Patient states that her pain is adequately controlled with Tylenol and oxycodone at this point. Patient states that she has been up to the bathroom multiple times. Patient states that she did work with physical therapy yesterday and it went really well. Patient denies any fevers, chills, signs of infection. Patient denies any new numbness or tingling. Patient denies any nausea, vomiting, dizziness. Patient denies any shortness of breath, chest pain, calf pain. Patient denies any adverse events overnight. Objective Data Objective Data Vital Signs: Vital Signs Temp Pulse Resp BP Pulse Ox O2 Del Method O2 Flow Rate 97.8 F 77 16 114/57 L 99 Room Air 4 01/12/25 06:53 01/12/25 06:53 01/12/25 06:53 01/12/25 06:53 01/12/25 06:53 01/12/25 06:53 01/11/25 11:21 Oxygen Flow Rate (L/min) 4 Oxygen Delivery Method Room Air Weight: 77.92 kg Body Mass Index (BMI) 29.3 Intake & Output: Intake and Output for Last 24 Hours 01/10/25 01/11/25 01/12/25 23:59 23:59 23:59 Intake Total 3050 / 3650 2049 Balance 3050 / 3650 2049 Lab / Micro Data 12/18/24 07:31 12/18/24 07:31 Micro: Microbiology 12/18/24 07:31 Swab (Method) Nasal Screen MRSA/MSSA - Final Radiography Diagnostic Testing: Radiology Impression Knee X-Ray 01/11/25 10:10 IMPRESSION: Hardware in position. Reading Location: [facility] Physical Exam Narrative MARV hose in place bilaterally SCDs in place bilaterally Dressing is clean dry and intact Dorsiflexion and plantarflexion are performed but pain or restriction Sensation intact to light touch Neurovascularly intact overall Negative Homans bilaterally Const alert, oriented x3 and no apparent distress Assessment & Plan Assessment/Plan (1) Status post total right knee replacement: PLAN: Status post right robotic assisted total knee arthroplasty day 1 1 DVT prophylaxis: Patient will be on Xarelto for 2 weeks postoperatively with her current medications of Plavix and aspirin 81 mg. Patient has history of May Thurner syndrome, stent placement, and multiple DVTs and PEs. Plavix is not indicated for blood clot prevention which is why we will be adding Xarelto. Following 2 weeks of Xarelto patient will be on aspirin 81 mg twice daily with Plavix rather than once. Patient was educated not to take any other anti-inflammatory medications while taking Xarelto. Patient will be wearing MARV hose bilaterally for 2 weeks postoperatively removing at night and with showering. Patient was educated to do 5 minutes of movement per every hour. 2. Pain medications: Patient will be taking Tylenol 1000 mg every 8 hours taking no more than 3000 mg in 24 hours, patient will also have oxycodone to take as needed for pain medication. OARRS report was reviewed today. Risk of abuse potential was discussed with patient. Patient was educated not to use while driving motor vehicle or operating equipment. Patient voiced understanding. 3. Constipation: Patient will be taking senna postoperatively. Patient was instructed to take until first bowel movement and then take as needed to decrease risk of impaction following surgery. Patient was educated if she has not had a bowel movement in 3 days to contact our office. 4. Labs: Patient's vital signs are stable and patient is afebrile. Patient is doing great at this point. Getting lab work was discussed with Dr. Harmon who did not feel it was necessary if patient was doing well at this point. 5. Physical therapy: Patient will be weightbearing as tolerated with walker with physical therapy. Patient does have outpatient physical therapy scheduled. 6. Incentive spirometry: Patient was encouraged to use incentive spirometer every hour that she is awake for the first week to exercise lungs and decrease risk of postoperative infection. Patient voiced understanding. 7. Dressings: Patient was educated she can get waterproof dressing wet on postoperative day 1. Patient was educated she can remove dressing on postoperative day 5. Patient was educated if incision is clean dry and intact she is able to leave open to air. 8. Patient is to follow-up per postoperative instructions. 9. Patient will have a follow-up appointment with Willie Srivastava in 2 weeks. 10. Medicine is involved at this point and appreciate recommendations from medicine. 11. Patient is okay for discharge if pain maintains adequately controlled, has worked with and is cleared by physical therapy, and is okay per medicine doctors instructions. 12. Patient states that she does feel comfortable with going home. Patient states that she does have help at home from her and her girlfriends who are coming to stay. Patient states that she does have senna, Tylenol, aspirin at home already. Patient would like medications sent in to be sent to pharmacy of choice which is [facility]. Patient will continue being weightbearing as tolerated with walker. Patient does have outpatient physical therapy scheduled. Patient does have 2-week follow-up appointment scheduled. Patient is to follow-up per postoperative instructions. Patient was encouraged to call us with any questions, concerns, new problems.
--- NOTE | 2025-01-12 08:37 | DCINST_ITS ---
Discharge Instructions Diet Discharge Diet: No restrictions DC O2, CPAP, BIPAP needs Home O2 Discharge instructions: No Dressing / Incision Discharge Activity: May Not Drive (Until 6 weeks postoperatively.) and Use Walker (Weightbearing as tolerated with walker.) Weight Bearing Status: Weight bearing as tolerated (With walker.) Keep extremity elevated above heart level: Right Leg Dressing / Incision Call your doctor if your incision/area has: Continuous Slow Oozing, Sudden Increased Bleeding, Increased Pain/ Swelling, Increased Redness, Foul Smelling Discharge and Swelling at the incision site Call your doctor if you observe: Fever of 101 or Higher, Coldness, Increased Pain, Numbness or Tingling, Change in Color, Inability to urinate, Inability to have a bowel movement, Using more than 1 pad per hour, Shortness of breath, Dizziness, Fainting spells, Chest pain, Increased palpitations (irregular heartbeat), Calf discomfort and Uncontrolled pain Remove Dressing in: 5 days (Can remove dressing on 01/16.) Cleanse incision/area with: Soap & Water Additional Dressing/Incision Instructions:: Once postoperative dressing has been removed, only use gentle soap and water over the incision. Do not use any ointments, Neosporin, salves, alcohol pads over the incision for 6 weeks postoperatively. Do not submerge underwater for 6 weeks postoperatively. Continue with MARV hose/elastic stockings for 2 weeks postoperatively. May remove at nighttime but needs to be placed back on the leg during the day. Do NOT use alcohol with narcotic pain medication. Do NOT make important decisions while taking narcotic medication. If you have problems with taking your medication (rash, itching, nausea, etc.) call the office at once. Follow Up Care Test Results: Test results from this visit will be discussed in further detail at your follow- up appointment, if applicable. Discharge Plan Admission Admit Date/Time: 01/11/25 07:14 Attending Provider: Andrea Harmon Primary Care Provider: Denny Woodard Consulting Providers: Javid Interiano Discharge Orders/Prescriptions Prescriptions: New acetaminophen 500 mg Tablet 1,000 mg PO TID Qty: 0 0RF sennosides-docusate sodium [Stimulant Laxative Plus] 8.6-50 mg Tablet 2 tab PO BID Qty: 0 0RF Rx Instructions: Take until first bowel movement and then as needed. famotidine 20 mg Tablet 20 mg PO DAILY 30 Days Qty: 30 0RF oxycodone 5 mg Tablet 5 - 10 mg PO Q4H PRN PRN (Reason: As needed for pain.) 7 Days Qty: 42 0RF Xarelto 10 mg Tablet 10 mg PO DAILY@0600 13 Days Qty: 13 0RF Continued omeprazole 20 MG capsule 20 mg PO DAILY Patient Comments: GERD multivitamin with folic acid [Thera] 1 TABLET tablet 1 tab PO DAILY Patient Comments: SUPPLEMENT gabapentin 300 MG capsule 300 mg PO TID Patient Comments: PAIN, NEUROPATHY clopidogrel 75 MG tablet 75 mg PO DAILY aspirin 81 MG tablet,chewable 81 mg PO DAILY sertraline 50 MG tablet 50 mg PO DAILY hydroxychloroquine 200 MG tablet 300 mg PO DAILYCM losartan 50 mg tablet 50 mg PO DAILY Other Ambulatory Orders: 12 Lead EKG (Routine) Timeframe: [id number] Location: None Selected Ordered By: Dr. Andrea Harmon Referrals / Follow Up: Denny Woodard MD [Primary Care Provider] - Disposition Disposition (needs filled in before D/C Order can be placed): Home, Self Care
[2025-01-12] MEDS: Senna/Docusate Sodium 1 Tablet 2 TABLET PO (08:38)
[2025-01-12] MEDS: Famotidine 20 MG Tablet PO (08:38)
--- NOTE | 2025-01-12 09:22 | CASEMGMT ---
Addendum entered by Carolin Johnson 01/12/25 09:40: Received tc back from [facility], pt cost is $27.76 for xarelto. Original Note: ANTONINA GÓMEZ Assessment: Face to Face with pt for initial transition planning/care coordination assessment. ANTONINA GÓMEZ introduced self and role at [facility], pt voices understanding and consents to assessment. Pt is A&O x4 and answers all questions appropriately at this time. Pt sitting up in chair in no distress. Care providers, pharmacy, and demographics verified/updated. Admitting Dx: TKR Strata Score: 1 PCP:Yamilet Specialists:petra Harmon; Fracisco Byrne Preferred Pharmacy: [facility] Jaqui Insurance: [facility] Prescription Benefit: yes LNOK: Darryl Collins, Living Arrangements: Pt lives with in a 2 story home with 3-4 steps to enter. Pt has FFSU. Pt reports prior to surgery she was I in ADL/IADLs and denies concerns at home. Pt and friend will assist her post op. Transportation: Pt drives self and denies concerns with transportation. Pt will transport her until she can drive again. DME:[facility], shower chair, FWW, [facility] HHC/SNF: Denies hx of Pt states no concerns with going home at time of dc. Pt has outpt therapy set up for Saturday at [facility]. Pt states no further concerns/needs. CM to follow. Advised pt to ask CM if any further questions/concerns/needs arise, voices understanding. Pt Goal: Home with outpt therapy Plan: Home with outpt therapy TC to [facility] to check cost of xarelto, left message on pharmacy line. Awaiting to return call. Bhavik SARKAR CM
--- NOTE | 2025-01-12 10:03 | PCM.HOSP.N ---
Hospitalist Note Patient was seen briefly today, I talked with her vascular surgeon from the [facility] concerning her use of antiplatelet drugs along with her Xarelto, he recommended either stopping the aspirin and having her take Plavix and Xarelto or stopping the Plavix and have her take aspirin and Xarelto-I went over this with the patient and she is agreed to take 81 mg aspirin with the Xarelto for 2 weeks and then go back on her regimen of aspirin 81 mg daily with Plavix 75 mg daily thereafter. I went over this with the nurse practitioner working with orthopedic surgery today.
--- NOTE | 2025-01-12 11:51 | PHA.DC_ITS ---
Pharmacy [facility] Pharmacy Service has performed discharge medication reconciliation and counseling for this patient. 1. ACETAMINOPHEN 1000MG PO Q8 2. FAMOTIDINE 20MG PO DAILY 3. RIVAROXABAN 10MG PO DAILY X 13 DAYS, THEN ASPIRIN 81MG BID X 14 DAYS (THEN RESUME DAILY) 4. OXYCODONE 5-10MG PO Q4H PRN PAIN 5. SENNA/DOCUSATE 2T PO BID UNTIL FIRST BM, THEN BID PRN CONSTIPATION The patient's discharge medication list was reviewed for discrepancies and discrepancies were resolved. The patient was counseled on the following discharge medications and changes in medications for homegoing were reviewed. The Reason for Use, instructions for use, and potential side effects were reviewed for all new medications. The patient's questions regarding all of their medications were answered. The patient was able to verbally demonstrate an understanding of their discharge medications. Medications at Discharge Home Medications multivitamin with folic acid 400 mcg tablet (Thera) 1 tab PO DAILY 08/14/13 omeprazole 20 mg capsule,delayed release 20 mg PO DAILY 08/14/13 gabapentin 300 mg capsule 300 mg PO TID 09/10/14 aspirin 81 mg chewable tablet 81 mg PO DAILY 10/07/16 clopidogrel 75 mg tablet 75 mg PO DAILY 10/07/16 sertraline 50 mg tablet 50 mg PO DAILY 02/06/20 hydroxychloroquine 200 mg tablet 300 mg PO DAILYCM OA 09/22/20 losartan 50 mg tablet 50 mg PO DAILY 01/11/25 acetaminophen 500 mg tablet 1,000 mg (2 x 500 mg) PO TID #0 tabs 01/12/25 famotidine 20 mg tablet 20 mg PO DAILY 30 days #30 tabs 01/12/25 oxycodone 5 mg tablet 5 - 10 mg (1 - 2 x 5 mg) PO Q4H PRN PRN As needed for pain. 7 days #42 tabs 01/12/25 rivaroxaban 10 mg tablet (Xarelto) 10 mg PO DAILY@0600 13 days #13 tabs 01/12/25 sennosides 8.6 mg-docusate sodium 50 mg tablet (Stimulant Laxative Plus) 2 tab PO BID #0 tabs 01/12/25
== END 2025-01-12 12:00 | disposition home or self-care (01) ==
LOC: SDC 10:00 → MS3 10:00
PROVIDERS: Admitting Provider Specialist; PCP Family Medicine; Referring Provider Specialist; Visit Provider Specialist
PROC: 0SRC0JZ Replacement of Right Knee Joint with Synthetic Substitute, Open Approach (ICD-10-PCS; CPT 27447; principal; 2025-01-11 07:00)
DX: M17.11 Unilateral primary osteoarthritis, right knee (principal); I10 Essential (primary) hypertension; F32.A Depression, unspecified; F41.9 Anxiety disorder, unspecified; K21.9 Gastro-esophageal reflux disease without esophagitis; Z79.82 Long term (current) use of aspirin; Z79.01 Long term (current) use of anticoagulants; Z79.02 Long term (current) use of antithrombotics/antiplatelets; Z79.899 Other long term (current) drug therapy; Z86.718 Personal history of other venous thrombosis and embolism; Z87.891 Personal history of nicotine dependence
CPT/HCPCS: 27447; 01402; 64447; 36415; 73560; 80048; 82040; 82962; 83735; 85025; 87081; 88304; 88311; 94668; 96361; 96365; 96366; 97110; 97162; 97166; 97530; 97535; 99221; C1776; G0378; J2405; J3475

== ENCOUNTER → 2025-01-12 | Outpatient (CLI) | payer OTHER, SELFPAY ==
--- NOTE | 2025-01-12 15:45 | VDLE_ITS ---
Reason For Study Reason For Study: RLE SWELLING RIGHT LEFT GSV is normal. CFV is compressible, spontaneous, phasic, competent, CFV is compressible, spontaneous, phasic, competent and demonstrates normal augmentation. and demonstrates normal augmentation. FV is compressible, spontaneous, phasic, competent and demonstrates normal augmentation. POP V is compressible, spontaneous, phasic, competent and demonstrates normal augmentation. T/P Trunk is compressible. PTV is compressible. RT PerV is compressible. Procedure This is a venous duplex using B-mode, color flow and spectral Doppler. Exam performed in department. The study was technically difficult. Due to swelling, espcially RT knee area. A preliminary report was called and/or faxed to Jaqui Louie @ [phone] @ 0430 pm. VL/Venous Duplex US, Unilateral Interpretation Summary Deep veins of the right lower extremity are patent and compressible segmentally . There is no evidence of right lower extremity deep vein thrombosis. The right great saphenous vein appears patent a nd compressible segmentally. Ordering Physician: Moose Gordon Referring Physician: Moose Gordon Performed By: Angie Gordon, OXANA, RVT
== END | disposition home or self-care (01) ==
LOC: CVS 15:43
PROVIDERS: PCP Family Medicine; Referring Provider Orthopaedic Surgery; Visit Provider Orthopaedic Surgery
DX: R22.41 Localized swelling, mass and lump, right lower limb (principal)
CPT/HCPCS: 93971

== ENCOUNTER 2025-03-16 12:00 | Outpatient (RCR) | payer OTHER, SELFPAY ==
--- NOTE | 2025-01-06 08:26 | PCM.HP.BLA ---
History and Physical History and Physical Patient Name: Mikal MillerB: 1965 From: DATE OF PRE-OPERATIVE EXAM: 01/04/2025 DATE OF SURGERY: 01/11/2025 SCHEDULED PROCEDURE: Robotic assisted right total knee arthroplasty. HISTORY OF PRESENT ILLNESS: Patient presents for preoperative visit. Patient states that she has had right knee pain for years. Patient states that her pain is constant, aching, sharp, sore. Patient states that doing stairs or driving make her pain worse. Patient states that resting, elevating, and standing help to alleviate her pain. Patient states that she is no longer able to do long walks due to her pain. Patient states that she feels unsafe taking walks in the winter due to her right knee. Patient states that she has tried heat, cortisone injection with no help. Patient has tried rest, ice, elevation, weight loss, compression, home exercises with help. Patient states she has not tried physical therapy, chiropractor, gel injection, oral medications. Patient states that she has taken Tylenol but it is not that often. Patient states that she has lost 10 pounds. Patient states that she has had 10 cortisone injections in the past. Patient denies any previous surgery on the knee. Patient states that she has tried a knee sleeve without help. The patient's sleep is occasionally disrupted by knee pain. Recent activities, such as hiking last week, have been challenging due to knee discomfort. REVIEW OF SYSTEMS: Review Of Systems: Constitutional: Denies anorexia, anxiety, change in appetite, fever and weight change,hard of hearing, and vision problems. Cardiovasular: Denies chest pain, heart murmur, irregular heartbeat and peripheral vascular disease. Respiratory: Denies asthma, cough, pneumonia, sleep apnea, shortness of breath, tuberculosis and wheezing. Gastrointestinal: Reports heartburn, but denies constipation, diarrhea, nausea, bloody stools and vomiting. Genitourinary: Denies female genital problems. Denies incontinence. Musculoskeletal: Reports gait disturbance, leg swelling, pain, trouble walking and weakness and limp. Skin: Denies Raynaud's, history of shingles and tattoo. Neurological: Denies ambulatory dysfunction, dizziness, numbness/tingling and tremor. Psychiatric: Denies anxiety, depression, insomnia, mental illness and stress. Hematologic/Lymphatic: Denies anemia, bleeding/bruising tendency and past transfusion. Reviewed, no changes. PAST MEDICAL HISTORY: Advance Care Plan: No Advance Directives Effective Date: 02/22/2022 Past Medical History: Medical Problems: Arthritis - back May-Thurner Syndrome, Acid Reflux, Depression History Of Blood Clots/ DVT - (08/14/2013) whole left leg Osteoporosis Pulmonary Embolism - (08/14/2013) total of 5 Mental Illness - anxiety insomnia, High Blood Pressure Accidents: Sports Related Injury - Early - Step aerobics Other - BLOOD CLOT LENGTH OF WHOLE LEFT LEG / 2012 Surgical Hx: Reconstructive - Labia - 1982 Stent Put In Iliac - 2014 Gallbladder - SEP 2020 filter - DVT - (2013) left leg Hysterectomy Anesthesia Complications: None Assistive Devices: Glasses, Contacts - occidentally Reviewed, no changes. SOCIAL HISTORY: Social History: Marital: .Occupation: career prep specialist.Work Status: Currently Working.Hand Dominance: Right-handed. Personal Habits: Cigarette Use: Former.Smokeless Tobacco: Never Used Smokeless Tobacco.E-Cigarette Use: Never used.Alcohol: Occasionally.Drug Use: Denies Use.Enjoy Exercising: Exercises 1-3 X/Week. Reviewed, no changes. VITALS: Ht: 65.5 Wt: 170lb Wt k.112 BMI: 27.9 BP: 124/80 Pulse: 73 Resp: 17 T: 98.3 T: 36.8C Pain Level: 8/10 O2SatR: 95 ALLERGIES: PCN Penicillin Prevacid MEDICATIONS: Omeprazole 20 mg 1 by mouth every day, Plavix 75 mg 1 by mouth every day, Zoloft 25 mg 1 every day as needed, Hydroxychloroquine Sulfate 200 mg 1 po qdaily, Hair Skin & Nails Gummies 1250-7.5-7.5 mcg-MG-Unt, Gabapentin 300 mg up to 4 per day, Aspirin 81 Low Dose 81 mg 1 po qdaily, Multivitamin & Multimineral Adults daily, Losartan Potassium 50 mg take 1 tablet by mouth every day PRE-OP EXAM: General appearance:NORMAL Other: Eyes: Conjunctivae and lids: NORMAL Pupils: ERR Ears, Nose, Mouth, and Throat: NORMAL Other: Inspection of lips, teeth and gums: NORMAL Other: Neck: Examination of neck: no masses noted. Respiratory: Assessment of respiratory effort: NORMAL Other: Auscultation of lungs: clear to auscultation no wheezes, rhonchi or rales. Cardiovascular: Auscultation of heart: regular rate and rhythm, no murmurs, gallops or rubs. Exam of carotid arteries: NORMAL Other: Gastrointestinal: Exam of abdomen: soft, nontender, nondistended bowel sounds present. Lymphatic: Palpation of nodes in neck: NORMAL Other: Palpation of nodes in Axillae: NORMAL Other: Neurological: see below Psychiatric: Orientation to time, place and person: NORMAL Other: Mood and affect: NORMAL Other: PHYSICAL EXAMINATION: - Right Knee: Inspection: Moderate effusion Alignment: correctable varus Stability: Firm endpoints with varus and valgus stress testing ROM: 2 degrees hyperextension to 118 degrees flexion, pain with full extension Special tests: IMAGING STUDIES: - X-rays (September 11, 2024): Severe medial joint space narrowing, indicating [id number] condition associated subchondral sclerosis and marginal osteophyte formation consistent with stage IV osteoarthritis. Comparison with 2021 x-rays shows progression of osteoarthritis. Additionally, patient does have AP, tunnel and lateral films of the left knee showing grade 3-4 moderate to severe left knee osteoarthritis with varus alignment IMPRESSION: May Thurner syndrome Acid reflux Depression History of blood clots and pulmonary embolisms Osteoporosis Anxiety Insomnia Hypertension Primary osteoarthritis right knee. Varus deformity right knee. PLAN: The surgeon did discuss and review all treatment options with the patient including surgical versus nonsurgical. At this time the patient does wish to proceed with the above-stated procedure. Potential risks benefits and complications of the procedure were discussed and reviewed with the patient including but not limited to , infection, nerve and blood vessel damage, persistent pain, numbness, tingling, paresthesias, blood clot, pulmonary embolism, in the requirement for possible further surgery. Patient expressed full understanding. Has no further questions for the doctor. Does agree to proceed with the above-stated procedure, and has signed the appropriate surgery consent form. DVT prophylaxis: Due to patient's history of blood clots and pulmonary embolism we will add Xarelto for 2 weeks postoperatively and then aspirin 81 mg twice daily for an additional 2 weeks to her daily medications of Plavix and aspirin. Patient will be wearing MARV hose for 2 weeks postoperatively. Pain medications: Patient will be on Tylenol and oxycodone as needed for pain control. Patient will be on famotidine for 30 days postoperatively. Patient will be on senna as needed for postoperative constipation. Avoid NSAIDs in this patient due to use of Plavix and aspirin daily as well as Xarelto postoperatively. ___ I have re-examined the patient. There are no clinical changes since date of exam. ___ See progress notes for changes. ___ Dictated on admission Date: Time: Signature:
--- NOTE | 2025-01-15 14:51 | HP.PTEVAL ---
Patient's Visit Information Visit Information Visit Information: BHUPENDRA MODI is a 59 year old F referred to Physical Therapy by ROBERT Mendez with a diagnosis of R TKA 01/11/25. Date of Evaluation: 01/15/25 Physical Therapist: Perico Corrales, DPT, OCS, CSCS Visit Plan Frequency: 3x /Week Duration: 4-6 Weeks Plan: 3x/week for 4-6 weeks IE HEP: SLRas abkle, QS, GS, AP, HS throughout day and shown seated H, reviewed appropriate gait and course of PT. use ice machine.Use wh walker for first week. Treat with patelllar mobs and HS/quad stretching and ROM R knee, strength R LE adn general adn gait training,stair training as tolerated, ice as needed but has machine at home. Subjective Subjective: Thursday 01/11 had R TKA by Dr. Harmon. Years of R knee pain prior adn L may need done. Went home next day, Using walker this week but not prior. Pain level this week is 4/10 and took meds 30 min and they control. HEP: HS, SLR with towel help, GS, aP and QS. Sleep is OK, all night and good in am. 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 Does pool ex when healthy 5 x /week, wants to get more walking adn get back to ex. Will want to walk 2 mile hike. Basic ADLs:bathroom, dressing self, Got in shower today sliding on chair but will need tub shower. Steps 14 up with railing. Using L right now. Had supervision. Uses cane. Pain R knee: Pain Intensity (Out of 10): 3 Pain Intensity Range: 0 and 5 Objective Objective: 17 inch at patella adn 21.5 6 inch above 8# quad strength adn 16# HS on R. -2 to 90 AROM R knee Walks with wh walker needing cues to flex knee, cane slower but mod I today for short distances. Stand without AD i with good balance, Walk with Out AD slow and antlagic on R but safe for a few steps. incisionj healing well and dressed properly. Appears dry. Patella stiff on R vs L. Balance/Special Test Scores TUG Test Time Seconds: 24 WOMAC Total Score: 60 WOMAC Percentatge: 37.5000 Goals Goal 1:: ST: 0-120 AROM R knee to aid with mobility Goal Time Frame: 2-4 Weeks Goal 2:: ST : pain 80% beetter adn 2/10 at worst and comfortable at rest. Goal Time Frame: 2-4 Weeks Goal 3:: walk without AD safe adn I community Goal Time Frame: 4-6 Weeks Goal 4:: steps reciprocal with one rail Goal Time Frame: 4-6 Weeks Goal 5:: Pt return to hiking with 1 mile loop Goal Time Frame: 4-6 Weeks Goal 6:: womac score 10 or less Goal Time Frame: 4-6 Weeks Rehabilitation Potential Physical Therapy Diagnosis: stiffness and soreness limiting function R knee after TKA Rehabilitation Potential: Good Anticipated Interventions Patient/Client Instruction: Educate patient on: Condition and Plan of Care For the Purpose of:: To decrease pain, To increase ROM, To improve nutrient delivery to tissue, To improve muscle performance and motor function, To increase tolerance to activity/condition/position and To improve gait and locomotor functions Therapeutic Exercise to Include: Strength training, Balance training, Flexibilty training, Gait and locomotor training, Passive ROM and Active ROM For the Purpose of:: To decrease pain, To decrease swelling/inflammation, To increase ROM, To improve nutrient delivery to tissue, To improve muscle performance and motor function, To increase tolerance to activity/condition/position, To improve ability of physical actions for home/community/work/leisure and To improve gait and locomotor functions Manual Therapy Techniques to Include: Mobilization, Passive ROM and Soft tissue mobilization For the Purpose of:: To decrease pain, To increase ROM and To increase tolerance to activity/condition/position Cryotherapy (ice pack, ice massage): Yes For the Purpose of:: To decrease swelling/inflammation Text: Thank you for the opportunity to evaluate your patient. For Medicare and Medicare HMO plans, please review the plan of care and approve it. It will need to be FAXED BACK to us at [phone] for Medicare purposes. For Medicare only, by signing this I certify the plan of care. Please let me know if there are questions or concerns regarding this plan of care. Physician Signature: Date:
--- NOTE | 2025-02-26 14:58 | HP.PTDCSUM ---
Discharge Summary D/C summary: It has been my pleasure to treat BHUPENDRA MODI referred by ROBERT Mendez, with the diagnosis of R TKA 01/11/25 for a total of 19 visit(s). Discharge Date: 02/26/25 Please see the following information for a summary of their discharge status. Subjective Subjective: Gtting better. I feel a lot better. 115 AROM and doing bike easily. No meds for a while. Pain level 1-2/10 normally. Night is worse and wakes her up sometimes and just has to move around. Pain R knee: Pain Intensity (Out of 10): 1 Overall Improvement % Improvement: 95 Objective Objective/Function: pt surprised at how well she does on steps, one rail reciprocal without much pain up or down. 0-115 ARM R knee today. TUG is 14 sec strength 30# ext and 38 flexion on R. Walking well, slow but can speed up with cues, steps reciprocal with one rail up and down, no discomfort, slightly weak R. Patella moving well R to L. Goals Goal 1:: ST: 0-120 AROM R knee to aid with mobility Goal Progress: Progressing Goal 2:: ST : pain 80% beetter adn 2/10 at worst and comfortable at rest. Goal Progress: 95 Goal 3:: walk without AD safe adn I community Goal Progress: Goal Met Goal 4:: steps reciprocal with one rail Goal Progress: up Goal 5:: Pt return to hiking with 1 mile loop Goal Progress: Progressing Goal 6:: womac score 10 or less Goal Progress: Progressing Plan Plan: d/c, pt to continue via HEP, gym working ROM and weaning back to hiking. Pain at night waking her up now and then is still frustrating part. D/C Information Discharge Comments: Pt will continue pool and gym and home based ex and ROM and wean back to hiking to tolerance. F/U with doctor today, doing well from PT point of view. d/c sentence: If there are questions or concerns regarding this patient's physical therapy, please feel free to call me at [phone]. Thank you for the referral of this patient. Sincerely, Perico Corrales, DPT, OCS, CSCS Balance/Gait/Functional tests Balance/Special Test Scores TUG Test Time Seconds: 24 Tug Test: 20-30sec.=variable mobility WOMAC Total Score: 27 WOMAC Percentage: 71.8800 Improvement % Improvement: 95
--- NOTE | 2025-03-02 15:56 | HP.PTREVAL ---
Re-Evaluation Intro: ROBERT Mendez, It has been my pleasure to treat BHUPENDRA MODI over the last 20 visits for R TKA 01/11/25. Please see the progress note below for an update on the physical therapy plan of care! Subjective Subjective: Saw Dr. Guzman and wanted more therapy for more strength. Needs more strength to RTW safly as she is up from chair a lot. Steps getting much better. Needs L TKA also but wants to put it off. Sleep pain is common said doctor. Going to water aerobics. May get released 03/19 to rtw if feels ok. Will do pool 4x/wee, gym Objective Objective/Function: 0-110 AROM, doing well, doctor wanted more strengthening to return to work. she will do 2x/week in gym hersefl, 5x/week in pool, another time a week for PT and progression. Chart has hilaria reopeened for this purpose to set goal to RTW by 03/22 and progress strength exercises. Good prognosis for this. Plan Plan Plan: wekly to get a excellent strength progression on machines and funcitonally and some manual kne flexion ROM to prep return to work. 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 Balance/Gait/Functional tests Balance/Special Test Scores TUG Test Time Seconds: 24 Tug Test: 20-30sec.=variable mobility WOMAC Total Score: 27 WOMAC Percentage: 71.8800 Goals Goals Goal 1:: ST: 0-120 AROM R knee to aid with mobility Goal Time Frame: 2-4 Weeks Goal Progress: Progressing Goal 2:: ST : pain 80% beetter adn 2/10 at worst and comfortable at rest. Goal Time Frame: 2-4 Weeks Goal Progress: 95 Goal 3:: walk without AD safe adn I community Goal Time Frame: 4-6 Weeks Goal Progress: Goal Met Goal 4:: steps reciprocal with one rail Goal Time Frame: 4-6 Weeks Goal Progress: up Goal 5:: Pt return to hiking with 1 mile loop Goal Time Frame: 4-6 Weeks Goal Progress: Progressing Goal 6:: womac score 10 or less Goal Time Frame: 4-6 Weeks Goal Progress: Progressing Anticipated Interventions Anticipated Interventions Patient/Client Instruction: Educate patient on: Condition and Plan of Care For the Purpose of:: To decrease pain, To increase ROM, To improve nutrient delivery to tissue, To improve muscle performance and motor function, To increase tolerance to activity/condition/position and To improve gait and locomotor functions Therapeutic Exercise to Include: Strength training, Balance training, Flexibilty training, Gait and locomotor training, Passive ROM and Active ROM For the Purpose of:: To decrease pain, To decrease swelling/inflammation, To increase ROM, To improve nutrient delivery to tissue, To improve muscle performance and motor function, To increase tolerance to activity/condition/position, To improve ability of physical actions for home/community/work/leisure and To improve gait and locomotor functions Manual Therapy Techniques to Include: Mobilization, Passive ROM and Soft tissue mobilization For the Purpose of:: To decrease pain, To increase ROM and To increase tolerance to activity/condition/position Cryotherapy (ice pack, ice massage): Yes For the Purpose of:: To decrease swelling/inflammation Re-Evaluation Ending Re-evaluation ending: Please do not hesitate to contact me at [phone] by phone or if you have questions or concerns regarding this new plan of care! Sincerely, Perico Corrales, DPT, OCS, CSCS
--- NOTE | 2025-03-16 12:33 | HP.PTDCSUM ---
Discharge Summary D/C summary: It has been my pleasure to treat BHUPENDRA MODI referred by ROBERT Mendez, with the diagnosis of R TKA 01/11/25 for a total of 23 visit(s). Discharge Date: 03/16/25 Please see the following information for a summary of their discharge status. Subjective Subjective: Doing gym workout on her own now(last ) and in pool sometimes a couple times per day. No pain at night anymore and sleeping well. Plan to return to work possibly next week if doctor will release her. Home activities are good. Near normal. Did some hiking over the weekend 1.6 miles on grass mostly flat. To Doc 04/09. Pt ready to rtw and be on her own for workout. Pain R knee: Pain Intensity (Out of 10): 0 Overall Improvement % Improvement: 98 Objective Objective/Function: Walks without antalgia today without deficits. Steps reciprocal with one rail. Transfer I without UE chair and tablee. Overall doing well and ready to be done with PT with HEP. 0-117 AROM Goals Goal 1:: ST: 0-120 AROM R knee to aid with mobility Goal Progress: Progressing Goal 2:: ST : pain 80% beetter adn 2/10 at worst and comfortable at rest. Goal Progress: 95, met Goal 3:: walk without AD safe adn I community Goal Progress: Goal Met Goal 4:: steps reciprocal with one rail Goal Progress: Goal Met Goal 5:: Pt return to hiking with 1 mile loop Goal Progress: Goal Met Goal 6:: womac score 10 or less Goal Progress: Goal Met Plan Plan: d/c, pt to contact doctor regarding return to work. D/C Information Discharge Comments: Will continue gym and home and pool workout and ready to return to work. will be contacting doctor regarding this. d/c sentence: If there are questions or concerns regarding this patient's physical therapy, please feel free to call me at [phone]. Thank you for the referral of this patient. Sincerely, Perico Corrales, DPT, OCS, CSCS Balance/Gait/Functional tests Balance/Special Test Scores TUG Test Time Seconds: 24 Tug Test: 20-30sec.=variable mobility WOMAC Total Score: 10 WOMAC Percentage: 89.5900 Improvement % Improvement: 98
== END 2025-03-16 14:16 | disposition home or self-care (01) ==
LOC: PT 12:00
PROVIDERS: PCP Family Medicine
DX: Z96.651 Presence of right artificial knee joint (principal); Z47.1 Aftercare following joint replacement surgery
CPT/HCPCS: 97016; 97110; 97140; 97162; 97164; 97530